=== PATIENT | female | born 1955 | race Caucasian/White ===

== ENCOUNTER 2020-03-14 04:17 | Inpatient (IN) | payer OTHER, SELFPAY ==
[2020-03-14] VITALS (15 sets, daily range): BP systolic 122–148; BP diastolic 72–92; PULSE 83–105; RESP 14–27; TEMP 36.4–38.3; O2SAT 88–97; BMI 36.6; BMI 35.5
--- NOTE | 2020-03-14 04:28 | RAD_ITS ---
STUDY: X-RAY CHEST REASON FOR EXAM: Female, 64 years old. +COVID, cough, shortness breath, weakness. TECHNIQUE: AP portable chest. COMPARISON: None. FINDINGS: Diffuse bilateral patchy airspace opacities most confluent in the lower lung right greater than left. No effusions. No pneumothorax. Normal size heart. Normal mediastinum and vasile. Normal visualized pulmonary arteries. Normal visualized aortic arch and descending thoracic aorta. Normal visualized thoracic spine. Normal visualized ribs, clavicles, and shoulders. There is no demonstrated abnormality of the visualized soft tissue structures of the upper abdomen. RAD/Chest 1 View (Portable) IMPRESSION: Multifocal bilateral pneumonia to include viral pneumonia. Electronically Signed: Main Page MD at 5:17 EST , Service support ,
[2020-03-14] MEDS: 0.9% Normal Saline 1,000 ML 125 ML IV ×3 (04:52→17:01)
[2020-03-14 04:56] LABS: Absolute Lymphocyte Count 1.06 X10^3/uL (0.83-4.51); Absolute Neutrophil Count 9.7 X10^3/uL (2.0-7.7); Basophil# 0.03 X10^3/uL; Basophil% 0.3 % (0-1); Hematocrit 40.5 % (37-47); Hemoglobin 13.2 g/dL (12.0-15.0); Lymphocyte # 1.06 X10^3/ul (4.0); Lymphocyte % 9.4 % (19-41); Mean Corp Hgb Conc 32.6 g/dL (32-36); Mean Corpuscular Hgb 28.3 pg (27.0-32.0); Mean Corpuscular Volume 86.7 fL (81-99); Mean Platelet Vol. 10.8 fl (6.2-12.0); Monocyte# 0.34 X10^3/uL; NRBC Flagged by Analyzer 0 % (0-5); Neutrophil % 86.5 % (47-70); Platelet Count 219 K/mm3 (150-450); RBC Distribution Width CV 14.8 % (11.6-14.6); Red Blood Count 4.67 M/mm3 (4.2-5.4); White Blood Count 11.2 K/mm3 (4.4-11.0)
[2020-03-14 05:08] LABS: D-Dimer Quantitative (DVT/PE) 2.56 FEU/ug/m (0.27-0.49)
[2020-03-14 05:13] LABS: ALB/GLOB Ratio 0.6 RATIO (0.9-2.4); AST(SGOT) 64 U/L (15-37); Alanine Aminotransfer ALT/SGPT 62 U/L (13-56); Albumin, Serum 2.7 g/dL (3.2-5.0); Alkaline Phosphatase 113 U/L (45-117); Anion Gap 7 (5-15); BUN 32 mg/dL (7-18); BUN/Creat Ratio 13.2 RATIO (10-20); Calcium,Total 8.5 mg/dL (8.5-10.1); Chloride 102 mmol/L (98-107); Creatinine, Serum 2.43 mg/dL (0.55-1.02); EST Glomerular Filtration Rate 21 mL/min (>60); Est Glom Filt Rate - Afr Amer 26 mL/min (>60); Estimated Creatinine Clearance 22.47 ml/min; Globulin 4.6 g/dL (2.2-4.2); Glucose 96 mg/dL (74-106); Potassium 3.6 mmol/L (3.5-5.1); Protein, Total 7.3 g/dL (6.4-8.2); Sodium Level 135 mmol/L (136-145)
--- NOTE | 2020-03-14 05:28 | ED.DCSUM_ITS ---
- ER Visit Summary Date of Service: 03/14/20 Chief Complaint: [Shortness of breath and generalized weakness] History of Present Illness: The patient is a 64 F [presents to the emergency department with 8-day history of symptoms. Patient with cough as well as body aches and headache. Patient was tested for COVID-19 1 week ago and got her results yesterday that were positive. Patient complains of exertional dyspnea and having no energy. Cough mostly dry but at times productive of some yellow sputum. Patient has had some chills and sweats. Patient otherwise has no medical history. Patient's also ill with similar symptoms.] Physical Examination: [HEENT-PERRLA, EOMI. Cranial nerves II through XII grossly intact. TMs clear. Mucous membranes moist. No adenopathy. Cardiovascular-regular rate and rhythm without murmur or ectopy Lungs-few rhonchi and rales bilaterally. No accessory muscle use or retractions. She has some mild tachypnea. Abdomen-normoactive bowel sounds, soft, nontender, no rebound or rigidity, no peritoneal signs. Extremities-intact ?4, normal range of motion, normal pulses, atraumatic] Test Results: [CBC with differential obtained showed a white count of 11.2, hemoglobin 13, hematocrit 40, platelets 219. Chemistries showed a sodium 135, potassium 3.6, chloride 102, CO2 26, BUN 32 and creatinine 2.43. Glucose was 146. D-dimer was elevated 2.56. Chest x-ray obtained showed bilateral infiltrates. Lactate pending.] Emergency Department Course and Treatment: [IV line established. Patient was ordered a normal saline. Patient was started on Levaquin 750 mg IV.] Treatment Plan: [I will discuss with hospitalist empirically treating patient with Lovenox given her elevated D-dimer and increased risk for hypercoagulable state related to COVID-19 given that we are unable to perform CTA of the patient's chest due to her acute kidney injury.] Disposition: [Admit] Impression: [Bilateral pneumonia COVID-19 infection Hypoxemia Sepsis] This note was generated with Vinja dictation software. It may contain incorrect words, spelling, and punctuation that were not noted in review of the chart p rior to signing ED Disposition - Plan for ED Patient: Referrals: Adolph Ross DO [Primary Care Provider] -
--- NOTE | 2020-03-14 05:31 | PCM.HP.STD ---
Problem List (1) Sepsis Status: Acute Qualifiers: Sepsis type: sepsis due to unspecified organism Sepsis acute organ dysfunction status: unspecified Qualified Code(s): A41.9 - Sepsis, unspecified organism (2) Hypoxia Status: Acute (3) Pneumonia due to COVID-19 virus Status: Acute (4) Elevated LFTs Status: Acute (5) Obesity (BMI 30-39.9) Status: Chronic (6) Former tobacco use Status: Chronic (7) Alcohol abuse Status: Chronic History of Present Illness Date of Admission: 03/14/20 Chief Complaint: Debility, weakness, dyspnea, cough, COVID positive The patient is a 64 y/o F w/ PMHx: Obesity, Former Tobacco use who presents to the [facility] ED on 03/14/20 with history of onset of COVID type symptoms including fever, headache, body aches, cough, dyspnea the prior Saturday with outpatient testing noted to be positive progressively worsening with increased fatigue, weakness, cough, dyspnea, worse with exertion with pleuritic generalized chest discomfort, worse with inspiratory increased effort, noted to be more severe over the last 48 hours prompting eventual ED presentation for evaluation. She does note that her spouse has been ill for the last 3 days with fevers but otherwise symptoms have been less severe. Work-up in the ED included T1 100, heart rate 101, BP 144/79, respiratory rate 24, 88% on room air at rest, CBC with WC 11.2, hemoglobin 13.2, platelet 219 with left shift, D-dimer 2.56, CMP with sodium 135, BUN/creatinine 32/2.43, lactic acid pending, AST/ALT 64/62, alk phos 113, culture x2 pending per ED, chest x-ray with multifocal bilateral pneumonia consistent with Covid pneumonia. In the ED patient ministered normal saline and Levaquin. Discussed case with ED physician and requested to be administered Decadron. Past Medical History Past Medical History (Chronic Problems): Chronic Problems Obesity (BMI 30-39.9) (Chronic) Former tobacco use (Chronic) Alcohol abuse (Chronic) Allergies No Known Allergies Allergy (Verified 03/14/20 04:18) Home Medications: Ambulatory Orders Medication Instructions Recorded Multivitamin [Multivitamins] 1 ea PO DAILY 03/14/20 Surgical History: - - Hysterectomy and intervention for ectopic . Psychiatric History: No pertinent psych hx [employer] History: ectopic Lives: Spouse/ Significant Other Smoking Status: Former smoker - Patient notes approximate 1 pack/day cigarette tobacco usage from when she was a teenager to age 27 following which she quit. Tobacco Use: Non-smoker Alcohol: Heavy - Patient normally drinks approximately 4 beers daily but since she has had onset of Covid type symptoms she has not been drinking. Drugs: None - *Family History Maternal History Items: Diabetes Paternal History Items: Hypertension Review of Systems Constitutional: Reports: Anorexia, Fever, Malaise, Weakness, Fatigue. Denies: Chills, Weight Change HEENT: Reports: Head Aches, Nasal Congestion. Denies: Sinus Congestion, Sinus Drainage Cardiovascular: Reports: Chest Pain. Denies: Chest Pressure, Chest Tightness, Light Headedness, Orthopnea, Palpitations, Syncope Respiratory: Reports: Cough, Pleuritic Pain, Shortness of Breath, Shortness of breath at rest, Shortness of breath upon exertion. Denies: Sputum production, Wheezing Gastrointestinal: Denies: Abdominal Pain, Nausea, Vomiting Genitourinary: Denies: Dysuria Musculoskeletal: Reports: Back Pain, Joint Pain, Muscle pain. Denies: Joint Tenderness Skin: Denies: Rash, Wounds Neurological: Denies: Numbness, Tingling, Focal weakness Psychiatric: Denies: Anxiety, Depression, Homicidal Ideations, Suicidal Ideations Hematologic/ Lymphatic: Denies: Easy Bruising, Easy Bleeding VTE Information - Inpt Only VTE Present on Admission: No VTE Mechan Device Prophylaxis: SCD's VTE Pharm Prophylaxis ordered?: Yes Subjective: Patient seated upright in the ED, fatigued and ill-appearing. Objective: Physical Examination: General: awake, alert, oriented x 3 and cooperative, seated upright in the ED bed, fatigued and ill-appearing. Skin: Flushed color, normal turgor, no icterus, no cyanosis. HEENT: AT/NC, EOMI, PERRLA, dry MM, no carotid bruits or JVD noted. Lungs: Diminished breath sounds bilaterally, greater bases, mild increased respiratory rate, no obvious accessory muscle usage currently, no rales, ronchi or wheezing. Heart: Tachycardic with regular rhythm; no gallop, rub audible. Abdomen: soft, obese, NTTP, ND, mildly hyperactive BS, no HSM. Extremities: no cyanosis, clubbing, or edema. Neurological: patient awake, alert, oriented as noted; cognitive function near baseline intact; pupils equally reactive to light and accomodation; cranial nerves II-XII grossly normal, moving all 4 extremities, no focal deficits, strength severely globally decreased secondary to acute presentation. Psychiatric: affect appears flat, fatigued, ill-appearing, no acute evidence of depressive or anxiety feelings. - Physical Exam Vitals/I&O's: Vital Signs Temp Pulse Resp BP Pulse Ox 100.0 F H 101 H 19 H 148/78 H 88 03/14/20 04:21 03/14/20 04:21 03/14/20 04:21 03/14/20 04:21 03/14/20 04:21 Oxygen Delivery Method Room Air Weight: 227 lb 1.218 oz Body Mass Index (BMI) 36.6 Laboratory Results 03/14/20 04:40: WBC 11.2 H, RBC 4.67, Hgb 13.2, Hct 40.5, MCV 86.7, MCH 28.3, MCHC 32.6, RDW Std Deviation 47.0 H, RDW Coeff of Ej 14.8 H, Plt Count 219, MPV 10.8, Immature Gran % (Auto) 0.800, Neut % (Auto) 86.5 H, Lymph % (Auto) 9.4 L, Saunders % (Auto) 3.0, Eos % (Auto) 0.0, Baso % (Auto) 0.3, Absolute Neuts (auto) 9.7 H, Absolute Lymphs (auto) 1.06, Nucleated RBC % 0 03/14/20 04:40: D-Dimer Quant (PE/DVT) 2.56 H* 03/14/20 04:40: Sodium 135 L, Potassium 3.6, Chloride 102, Carbon Dioxide 26.0, Anion Gap 7, BUN 32 H, Creatinine 2.43 H, Estim Creat Clear Calc 22.47, Est GFR (MDRD) Af Amer 26 L, Est GFR (MDRD) Non-Af 21 L, BUN/Creatinine Ratio 13.2, Glucose 96, Calcium 8.5, Total Bilirubin 0.40, AST 64 H, ALT 62 H, Alkaline Phosphatase 113, Total Protein 7.3, Albumin 2.7 L, Globulin 4.6 H, Albumin/Globulin Ratio 0.6 L 03/14/20 04:40: Lactic Acid Pending Current Medications Sodium Chloride () 1,000 mls @ 125 mls/hr IV .Q8H CARI Last Admin: 03/14/20 04:52 Dose: 125 mls/hr Documented by: Levofloxacin (Levaquin Iv) 750 mg in 150 mls @ 100 mls/hr IV X1 ONE Stop: 03/14/20 06:46 Assessment/Plan All Active Problems Sepsis (Acute) Hypoxia (Acute) Pneumonia due to COVID-19 virus (Acute) Elevated LFTs (Acute) The patient is a 64 y/o F w/ PMHx: Obesity, Former Tobacco use who presents to the [facility] ED on 03/14/20 with history of onset of COVID type symptoms including fever, headache, body aches, cough, dyspnea the prior Saturday with outpatient testing noted to be positive progressively worsening with increased fatigue, weakness, cough, dyspnea, worse with exertion with pleuritic generalized chest discomfort, worse with inspiratory increased effort. 1. Acute Sepsis secondary to Acute Hypoxia secondary to Bilateral Pneumonia secondary to Suspected Acute Viral Syndrome, COVID-19: Will admit to the COVID unit, will maintain on oxygen with wean as tolerated to room air, HOB, IS parameters w/ pending sputum cultures, respiratory viral panel and urine antigens, will obtain procalcitonin, CRP, CPK, Ferritin, LDH, noted elevated D-dimer with ROS will obtain BL LE duplex US, trend D-dimer, in interim place on renally dosed eliquis, continue supportive care including q 2 hour turning including prone given no prone bed availability and judicious hydration, closely monitor for worsening status for ARDS and multiorgan failure, will continue decadron, request ID consultation, PT/OT/CM consultations. 2. Acute kidney injury: Secondary to acute presentation #1. Admission BUN/Cr 32/2.43, prior baseline creatinine noted to be normal per her report. Will hydrate, hold nephrotoxic medications and repeat chemistry in AM. If no improvement would plan FeNa and renal US assessment. 3. Elevated LFTs: Likely secondary to #1 and #2, however given alcohol abuse may be also related to this, judiciously hydrating given #1, repeat CMP in a.m. 4. Obesity: Weight loss and lifestyle changes encouraged. 5. Former tobacco use: Encourage continued tobacco cessation. 6. EtOH Abuse: Patient notes routine consumption of 4 beers per day, encourage decreasing this amount versus sobriety. Will maintain on CIWA protocol, MVI, thiamine and folic acid. Magnesium and phosphorus levels requested, repletion if appropriate. Case management consulted for substance abuse education. 7. DVT prophylaxis: SCDs, therapeutic Lovenox per Covid order set pending duplex ultrasound given renal function. 8. CODE status: Patient SAVANNA is her and living will is currently in place. Discussed CODE status at length including difference between FULL code, DNR-CCA and DNR-CC status. Following discussions about the differences in these status, requested Full Code status. Advanced Care Planning Face to Face Time: 16 minutes. Inpatient E&M: 02334 Init Hosp L3 Procedures: 33445 Advncd Care Plan 30 Min
[2020-03-14 05:33] LABS: Lactic Acid 1.2 mmol/L (0.4-1.9)
--- NOTE | 2020-03-14 05:45 | ED.RN ---
CALLED AND UPDATED ON ADMISSION AT THIS TIME
[2020-03-14] MEDS: levoFLOXacin IV 750 MG/150 ML BAG 100 MG IV (05:48)
[2020-03-14] MEDS: dexAMETHasone 10 MG/ML Vial IV (05:55)
[2020-03-14] MEDS: Morphine 4 MG/ML Syringe IV (05:56)
--- NOTE | 2020-03-14 07:49 | VDLE_ITS ---
RIGHT LEFT GSV is normal. GSV is normal. Right CFV, SFJ, FV and PopV are compressible. Left CFV, SFJ, FV and PopV are compressible. T/P Trunk is compressible. T/P Trunk is compressible. PTV is compressible. PTV is compressible. RT PerV is compressible. LT PerV is compressible. Procedure This is a venous duplex using B-mode, color flow and spectral Doppler. Exam performed in department. The exam was abbreviated due to the COVID 19 protocol. A preliminary report was called and/or faxed to [facility]. Interpretation Summary No evidence for acute deep venous thrombosis bilateral lower extremities with patent and compressible bilateral great saphenous veins. Abbreviated COVID-19 protocol Ordering Physician: Katie Murray Referring Physician: Mamadou Ramires Chi Performed By: Shae Welch RVT
[2020-03-14 08:32] LABS: Ferritin 1840 ng/mL (8-252); LDH 362 U/L (84-246); Magnesium 2.4 mg/dL (1.6-2.6); Phosphorus 2.9 mg/dL (2.5-4.9)
[2020-03-14 08:35] LABS: Procalcitonin 0.24 ng/mL (0.00-0.09)
[2020-03-14] MEDS: 0.9% Normal Saline 1,000 ML 999 ML IV (09:04)
[2020-03-14] MEDS: 0.9% Saline Lock 10 ML Syringe IV (09:08)
[2020-03-14] MEDS: Famotidine 20 MG Tablet PO ×2 (10:13→20:06)
[2020-03-14] MEDS: Thiamine Hydrochloride 100 MG Tablet PO ×2 (10:13→17:00)
[2020-03-14] MEDS: Multivitamins,Ther W-Minerals Tablet 1 TABLET PO (10:13)
[2020-03-14] MEDS: Enoxaparin 100 MG/ML Syringe SC (10:13)
[2020-03-14] MEDS: Folic Acid 1 MG Tablet PO (10:13)
--- NOTE | 2020-03-14 10:23 | CASEMGMT ---
SW called patient in her room as she is COVID positive. SW asked her if physician spoke with her about cutting back on her alcohol consumption. She said she did talk with her. USMAN asked if she would like any resources to help her with this and she declined. Elizabeth MILAN MSW
--- NOTE | 2020-03-14 10:59 | CASEMGMT ---
PETE LONDON assessment: Phone interview with patient for initial transition planning/care coordination assessment as pt is COVID positive at this time. PETE LONDON introduced self and role at [facility], pt voices understanding and consents to assessment at this time. Pt is A/Ox4 at this time and answers all questions appropriately at this time. Pt is currently on 4L nc at this time. Pt speaks in full sentences at this time but sounds tired/weak at this time. Pt states is sick and quarantining at home. Pt states no concerns getting supplies that they need. Care providers, pharmacy, and demographics verified at this time. Presentation: COVID + since last saturday. 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 Insurance: [employer] Prescription Benefit: Aetna Living Will/HPOA: Pt states has LW/HPOA and is aware that they are not on file at [facility] at this time. Pt states , Kamron Nixon, is HPOA. LNOK: Kamron Nixon, Living Arrangements: Pt states lives with in 2 story home and states no concerns at home at this time. Pt states is independent with ADL's. Transportation: Pt states drives self and states no transportation concerns at this time. DME/HHC: Pt states no current DME or need for any further DME at this time. Pt states no preference for DME company, if qualifies for home oxygen at discharge. Pt states no hx of HHC or SNF in the past. Pt states no concerns with going home at time of discharge. Pt works produce department manager. Pt states does not smoke cigarettes but does drink ETOH. Pt states no further concerns/needs at this time. CM to follow for home oxygen need and any further discharge planning/needs. Advised pt to ask for CM if any further questions/concerns/needs arise, voices understanding. Pt Goal: Home Plan: [place]E [place]
--- NOTE | 2020-03-14 11:22 | PCM.PN.BLA ---
Progress Note Patient was seen and examined. She complains of feeling tired. On 2 L of oxygen. Running low-grade fever Appears comfortable No wheezes on exam Labs reviewed Continue on dexamethasone and remdesivir Follow-up in a.m. STROKE Vital Signs/Narrative: Vital Signs Temp Pulse Resp BP Pulse Ox 03/14/20 08:33 105 H 03/14/20 08:28 95 03/14/20 08:10 99.9 F H 88 14 122/72 H 95
[2020-03-14] MEDS: Acetaminophen 325 MG Tablet 650 MG PO (14:57)
--- NOTE | 2020-03-14 21:35 | PCM.HP.ID ---
Problem List (1) Pneumonia due to COVID-19 virus Status: Acute Reason for Consult: covid Consulted by: Dr. Reyna History of Present Illness: The patient is a 64 year old F, presented 03/14 with sx starting 03/06 with fever, chills, altered taste (salty), aches, fatigue, cough. feels fine and is in quarantine. She thinks she got it from someone who was sick at a meeting. Came to ED, hypoxic, ddimer high. Still not feeling well. Full ROS performed and neg except as noted above. - Medical History Past Medical History (Chronic Problems): Chronic Problems Obesity (BMI 30-39.9) (Chronic) Former tobacco use (Chronic) Alcohol abuse (Chronic) Allergies/Adverse Reactions: Allergies No Known Allergies Allergy (Verified 03/14/20 04:18) Home Medications: Ambulatory Orders Medication Instructions Recorded Multivitamin [Multivitamins] 1 ea PO DAILY 03/14/20 - Social History SMOKING STATUS:: Former smoker Vital Signs Temp Pulse Resp BP Pulse Ox 97.5 F L 83 18 142/83 H 95 03/14/20 20:03 03/14/20 20:03 03/14/20 20:03 03/14/20 20:03 03/14/20 20:03 Oxygen Flow Rate (L/min) 3 Oxygen Delivery Method Nasal Cannula Weight: 99.79 kg Body Mass Index (BMI) 35.5 Microbiology Past 72 Hours 03/14/20 17:00 Legionella Antigen - Final Urine, Clean Catch Streptococcus pneumoniae Antigen (M - Final Laboratory Tests Past 24 Hrs 03/14/20 03/14/20 03/14/20 04:40 04:40 04:40 WBC 11.2 H RBC 4.67 Hgb 13.2 Hct 40.5 MCV 86.7 MCH 28.3 MCHC 32.6 RDW Std Deviation 47.0 H RDW Coeff of Ej 14.8 H Plt Count 219 MPV 10.8 Immature Gran % (Auto) 0.800 Neut % (Auto) 86.5 H Lymph % (Auto) 9.4 L [place] % (Auto) 3.0 Eos % (Auto) 0.0 Baso % (Auto) 0.3 Absolute Neuts (auto) 9.7 H Absolute Lymphs (auto) 1.06 Nucleated RBC % 0 D-Dimer Quant (PE/DVT) 2.56 H* Sodium 135 L Potassium 3.6 Chloride 102 Carbon Dioxide 26.0 Anion Gap 7 BUN 32 H Creatinine 2.43 H Estim Creat Clear Calc 22.47 Est GFR (MDRD) Af Amer 26 L Est GFR (MDRD) Non-Af 21 L BUN/Creatinine Ratio 13.2 Glucose 96 Lactic Acid Calcium 8.5 Phosphorus Magnesium Ferritin Total Bilirubin 0.40 AST 64 H ALT 62 H Alkaline Phosphatase 113 Lactate Dehydrogenase C-React Prot Ext Range Total Protein 7.3 Albumin 2.7 L Globulin 4.6 H Albumin/Globulin Ratio 0.6 L Procalcitonin 03/14/20 03/14/20 03/14/20 04:40 04:40 04:40 WBC RBC Hgb Hct MCV MCH MCHC RDW Std Deviation RDW Coeff of Ej Plt Count MPV Immature Gran % (Auto) Neut % (Auto) Lymph % (Auto) [place] % (Auto) Eos % (Auto) Baso % (Auto) Absolute Neuts (auto) Absolute Lymphs (auto) Nucleated RBC % D-Dimer Quant (PE/DVT) Sodium Potassium Chloride Carbon Dioxide Anion Gap BUN Creatinine Estim Creat Clear Calc Est GFR (MDRD) Af Amer Est GFR (MDRD) Non-Af BUN/Creatinine Ratio Glucose Lactic Acid 1.2 Calcium Phosphorus 2.9 Magnesium 2.4 Ferritin 1840 H Total Bilirubin AST ALT Alkaline Phosphatase Lactate Dehydrogenase 362 H C-React Prot Ext Range 291.00 H Total Protein Albumin Globulin Albumin/Globulin Ratio Procalcitonin 0.24 H - Other Studies Radiology: [] reviewed Other Studies: [] Route of nutrition/ use of supplements: [] Nutritional Intake: [] IV Site: [] Maynard Catheter: [] - Physical Exam General: Alert, Oriented x3, Cooperative HEENT: Atraumatic, PERRLA, EOMI Neck: Supple, No Nodes Lungs: Diminished Cardiovascular: Regular rate, Regular Rhythm Abdomen: Soft, Non Tender, Non-Distended Extremities: No edema Skin: No rashes IV Site: Peripheral, without redness Musculoskeletal: No Tenderness to Palpation of Joints or Extremities Neurological: Cranial nerves II-XII grossly intact - Assessment/Plan Antibiotics: [] Assessment/Plan: [] Active and Suspected Problems Sepsis (Acute) Hypoxia (Acute) Pneumonia due to COVID-19 virus (Acute) Elevated LFTs (Acute) Covid with hypoxia, d-dimer 2.56, on therapeutic lovenox, po dex. GFR less than 30, but will give remdesivir given risks outweighed by benefits. Will monitor daily labs. Reviewed EUA and risk/benefit of plasma, and she wishes to think about it. Will follow, thank you.
[2020-03-15] VITALS (7 sets, daily range): BP systolic 136–148; BP diastolic 80–90; PULSE 76–85; RESP 18; TEMP 36.3–36.7; O2SAT 84–95
[2020-03-15] MEDS: 0.9% Normal Saline 1,000 ML 125 ML IV ×2 (02:47→08:54)
[2020-03-15] MEDS: Acetaminophen 325 MG Tablet 650 MG PO (02:48)
[2020-03-15 08:01] LABS: Hematocrit 39.8 % (37-47); Hemoglobin 12.1 g/dL (12.0-15.0); Mean Corp Hgb Conc 30.4 g/dL (32-36); Mean Corpuscular Hgb 27.4 pg (27.0-32.0); Mean Corpuscular Volume 90.2 fL (81-99); Mean Platelet Vol. 10.4 fl (6.2-12.0); Platelet Count 291 K/mm3 (150-450); RBC Distribution Width CV 15.1 % (11.6-14.6); RBC Distribution Width SD 50.1 fl (35.1-43.9); Red Blood Count 4.41 M/mm3 (4.2-5.4); White Blood Count 14.3 K/mm3 (4.4-11.0)
[2020-03-15 08:28] LABS: ALB/GLOB Ratio 0.6 RATIO (0.9-2.4); AST(SGOT) 54 U/L (15-37); Alanine Aminotransfer ALT/SGPT 53 U/L (13-56); Albumin, Serum 2.3 g/dL (3.2-5.0); Alkaline Phosphatase 102 U/L (45-117); Anion Gap 9 (5-15); BUN 33 mg/dL (7-18); BUN/Creat Ratio 16.7 RATIO (10-20); Calcium,Total 8.2 mg/dL (8.5-10.1); Chloride 114 mmol/L (98-107); Creatinine, Serum 1.98 mg/dL (0.55-1.02); EST Glomerular Filtration Rate 27 mL/min (>60); Est Glom Filt Rate - Afr Amer 33 mL/min (>60); Estimated Creatinine Clearance 27.58 ml/min; Globulin 3.6 g/dL (2.2-4.2); Glucose 104 mg/dL (74-106); Potassium 4.3 mmol/L (3.5-5.1); Protein, Total 5.9 g/dL (6.4-8.2); Sodium Level 143 mmol/L (136-145)
[2020-03-15] MEDS: Thiamine Hydrochloride 100 MG Tablet PO (08:53)
[2020-03-15] MEDS: Famotidine 20 MG Tablet PO (08:54)
[2020-03-15] MEDS: Folic Acid 1 MG Tablet PO (08:54)
[2020-03-15] MEDS: Multivitamins,Ther W-Minerals Tablet 1 TABLET PO (08:54)
[2020-03-15] MEDS: dexAMETHasone 4 MG Tablet 6 MG PO (08:54)
[2020-03-15] MEDS: Enoxaparin 100 MG/ML Syringe SC (10:17)
--- NOTE | 2020-03-15 11:24 | PN.ID_ITS ---
Patient Problems: Active and Suspected Problems Sepsis (Acute) Hypoxia (Acute) Pneumonia due to COVID-19 virus (Acute) Elevated LFTs (Acute) Subjective: Feeling better today, no fever, less SOB, no n/v/d. - Physical Exam Vitals/I&O's: Vital Signs Temp Pulse Resp BP Pulse Ox 97.4 F L 76 18 148/90 H 92 03/15/20 08:43 03/15/20 08:43 03/15/20 08:43 03/15/20 08:43 03/15/20 08:48 Oxygen Flow Rate (L/min) 2 Oxygen Delivery Method Nasal Cannula Weight: 102 kg Body Mass Index (BMI) 35.5 Intake and Output for Last 24 Hours 03/13/20 03/14/20 03/15/20 23:59 23:59 23:59 Intake Total 3513.33 / 3633.33 1735.00 / 1735.00 Output Total 1250 / 1750 800 / 800 Balance 2263.33 / 1883.33 935.00 / 935.00 General: Alert, Cooperative, No apparent distress Lungs: Clear to auscultation, Diminished Cardiovascular: Regular rate, Regular Rhythm Abdomen: Soft, Non Tender, Non-Distended Skin: No rashes Microbiology Past 72 Hours 03/14/20 17:00 Urine, Clean Catch Legionella Antigen - Final 03/14/20 17:00 Urine, Clean Catch Streptococcus pneumoniae Antigen (M - Final Laboratory Results 03/15/20 06:20: WBC 14.3 H, RBC 4.41, Hgb 12.1, Hct 39.8, MCV 90.2, MCH 27.4, MCHC 30.4 L D, RDW Std Deviation 50.1 H, RDW Coeff of Ej 15.1 H, Plt Count 291, MPV 10.4 03/15/20 06:20: Sodium 143, Potassium 4.3, Chloride 114 H, Carbon Dioxide 20.0 L , Anion Gap 9, BUN 33 H, Creatinine 1.98 H, Estim Creat Clear Calc 27.58, Est GFR (MDRD) Af Amer 33 L, Est GFR (MDRD) Non-Af 27 L, BUN/Creatinine Ratio 16.7, Glucose 104, Calcium 8.2 L, Total Bilirubin 0.30, AST 54 H, ALT 53, Alkaline Phosphatase 102, Total Protein 5.9 L, Albumin 2.3 L, Globulin 3.6, Albumin/Globulin Ratio 0.6 L Current Medications Acetaminophen (Acetaminophen 325 Mg Tablet) 650 mg PO Q4H PRN PRN PRN Reason: Pain Score 1-10/Temp > 100.7 F Last Admin: 03/15/20 02:48 Dose: 650 mg Documented by: Al Hydroxide/Mg Hydroxide (Mag Hydrox/Al Hydrox/Simeth 30 Ml Udc) 30 ml PO Q6H PRN PRN PRN Reason: Gastric Burning Dexamethasone (Dexamethasone 4 Mg Tablet) 6 mg PO DAILY [facility] Stop: 03/23/20 10:01 Last Admin: 03/15/20 08:54 Dose: 6 mg Documented by: Enoxaparin Sodium (Enoxaparin 100 Mg/Ml Syringe) 100 mg 1 mg/kg (100 mg) SC Q24 [facility] Last Admin: 03/15/20 10:17 Dose: 100 mg Documented by: Famotidine (Famotidine 20 Mg Tablet) 20 mg PO BID [facility] Last Admin: 03/15/20 08:54 Dose: 20 mg Documented by: Folic Acid (Folic Acid 1 Mg Tablet) 1 mg PO DAILY@0800 [facility] Stop: 03/16/20 08:01 Last Admin: 03/15/20 08:54 Dose: 1 mg Documented by: Guaifenesin (Guaifenesin 10 Ml Udc (200mg/10ml)) 20 ml PO Q4H PRN PRN PRN Reason: COUGH Hydralazine HCl (Hydralazine 20 Mg/Ml Vial) 10 mg IV Q4H PRN PRN PRN Reason: SBP > 160 Sodium Chloride () 1,000 mls @ 125 mls/hr IV .Q8H [facility] Last Admin: 03/15/20 08:54 Dose: 125 mls/hr Documented by: Sodium Chloride () 250 mls @ 15 mls/hr IV .[id number] PRN PRN Reason: Saline Flush Sodium Chloride () 250 mls @ 15 mls/hr IV .[id number] PRN PRN Reason: Additional IVPB Infusion Remdesivir 100 mg/ Sodium (Chloride) 250 mls @ 125 mls/hr IV DAILY [facility]; Prot ocol Stop: 03/18/20 11:59 Last Admin: 03/15/20 10:26 Dose: 125 mls/hr Documented by: Lorazepam (Lorazepam 1 Mg Tablet) 2 mg PO Q2H PRN PRN; Protocol PRN Reason: CIWA score > 8 but <15 Lorazepam (Lorazepam 1 Mg Tablet) 2 mg PO UD PRN; Protocol PRN Reason: CIWA score >/=15. Lorazepam (Lorazepam 2 Mg/Ml Syringe) 2 mg IV Q2H PRN PRN; Protocol PRN Reason: CIWA score > 8 but <15 Lorazepam (Lorazepam 2 Mg/Ml Syringe) 2 mg IV UD PRN; Protocol PRN Reason: CIWA score >/=15. Magnesium Hydroxide (Magnesium Hydroxide 30 Ml Udc) 30 ml PO DAILY PRN PRN PRN Reason: Constipation Melatonin (Melatonin 3 Mg Tablet) 3 mg PO QHS PRN PRN PRN Reason: INSOMNIA Morphine Sulfate (Morphine 2 Mg/Ml Syringe) 2 mg IV Q3H PRN PRN PRN Reason: Pain Score 6-10 Multivitamins/Minerals (Multivitamins,Ther W-Minerals Tablet) 1 tablet PO DAILYCM [facility] Last Admin: 03/15/20 08:54 Dose: 1 tablet Documented by: Nitroglycerin (Nitroglycerin (Inpatient Use) 0.4 Mg Tab.Subl) 0.4 mg SUBLINGUAL Q5M PRN PRN Reason: CARDIAC/CHEST PAIN Ondansetron HCl (Ondansetron 4 Mg/2 Ml Vial) 4 mg IV Q8H PRN PRN PRN Reason: NAUSEA/VOMITING Oxycodone HCl (Oxycodone 5 Mg Tablet) 5 mg PO Q4H PRN PRN PRN Reason: Pain Score 4-5 Prochlorperazine Edisylate (Prochlorperazine 10 Mg/2 Ml Vial) 5 mg IV Q4H PRN PRN PRN Reason: Breakthrough Nausea/Vomiting Psyllium Hydrophilic Mucilloid (Psyllium 1 Packet) 1 packet PO DAILY PRN PRN PRN Reason: Constipation Senna/Docusate Sodium (Senna/Docusate Sodium 1 Tablet) 2 tablet PO BID PRN PRN PRN Reason: Constipation Sodium Chloride (0.9% Saline Lock 10 Ml Syringe) 10 - 40 ml IV UD PRN PRN Reason: SALINE FLUSH Last Admin: 03/14/20 09:08 Dose: 10 ml Documented by: Thiamine HCl (Thiamine Hydrochloride 100 Mg Tablet) 100 mg PO BIDCM [facility] Stop: 03/16/20 17:01 Last Admin: 03/15/20 08:53 Dose: 100 mg Documented by: Throat Lozenges (Benzocaine/Menthol 1 Lozenge) 1 lozenge MUCOUS MEM Q2H PRN PRN PRN Reason: SORE THROAT Medical Necessity - Tobacco Use Smoking Status: Former smoker Tobacco Use: Non-smoker Route of nutrition/ use of supplements: [] Nutritional Intake: [] IV Site: [] Maynard Catheter: [] - Assessment/Plan Antibiotics: [] Assessment/Plan: [] Active and Suspected Problems Sepsis (Acute) Hypoxia (Acute) Pneumonia due to COVID-19 virus (Acute) Elevated LFTs (Acute) Covid with hypoxia, d-dimer 2.56, on therapeutic lovenox, po dex. On remdesivir, labs doing ok, Cr better. Feeling better. Ok for home with po dex to complete 10 days total, recommend low dose anticoagulation for 2 weeks at discharge. Will follow, d/w Dr. Reyna
--- NOTE | 2020-03-15 12:27 | DCINST_ITS ---
- Discharge Diagnoses Current Active Problems: Current Active and Chronic Problems Sepsis (Acute) Hypoxia (Acute) Pneumonia due to COVID-19 virus (Acute) Elevated LFTs (Acute) Obesity (BMI 30-39.9) (Chronic) Former tobacco use (Chronic) Alcohol abuse (Chronic) Reason(s) for Visit for Discharge Instructions: Acute covid-19 infection/pneumonia You will use the following diet at home:: Regular Your food should be the consistency of: Regular Your liquids should be the consistency of: Regular/Thin Discharge Activity: Return to Normal Activity Additional Instructions: You are being discharged with oxygen. Continue to use your oxygen all the time. Continue to use your incentive spirometer. Continue to remain active and eat healthy. Let your doctor know if you develop fever >101.3F or have progressive worsening shortness of breath. Follow-up with your primary care doctor to have your continued oxygen use reevaluated. Be careful of going near open flames whilst on oxygen. Do not smoke whilst on oxygen. Allergies/Adverse Reactions: Allergies No Known Allergies Allergy (Verified 03/14/20 04:18) Medications to take at Discharge Multivitamin [Multivitamins] 1 ea PO DAILY 03/14/20 Acetaminophen [Tylenol Tablet] 650 mg PO Q4H PRN PRN tab 03/15/20 Apixaban [Eliquis] 5 mg PO BID 14 Days #28 tab.ds.pk 03/15/20 Dexamethasone [Decadron] 6 mg PO DAILY 8 Days #8 tab 03/15/20 Famotidine [Pepcid] 20 mg PO BID 30 Days #30 tab 03/15/20 Folic Acid 1 mg PO DAILY@0800 30 Days #30 tab 03/15/20 Thiamine Hydrochloride [Vitamin B1] 100 mg PO BIDCM 30 Days #60 tab 03/15/20 The following prescriptions were given: Dexamethasone [Decadron] 6 mg PO DAILY 8 Days #8 tab Apixaban [Eliquis] 5 mg PO BID 14 Days #28 tab.ds.pk Transmission Status: Pending to [facility]/pharmacy #[id number] Folic Acid 1 mg PO DAILY@0800 30 Days #30 tab Famotidine [Pepcid] 20 mg PO BID 30 Days #30 tab Thiamine Hydrochloride [Vitamin B1] 100 mg PO BIDCM 30 Days #60 tab Primary Care Physician: Adolph Ross DO [COURTESY STAFF PHYSICIAN] - Please follow up with your Primary Care Physician in: within 1-2 weeks Test Results: Test results from this visit will be discussed in further detail at your follow- up appointment, if applicable. Proposed Discharge Date: 03/15/20
--- NOTE | 2020-03-15 12:33 | DS.PCM_ITS ---
Discharge Date and Diagnosis - Problem List Patient Problems: Active and Suspected Problems Sepsis (Acute) Hypoxia (Acute) Pneumonia due to COVID-19 virus (Acute) Elevated LFTs (Acute) Date of Admission: 03/14/20 Date of Discharge: 03/15/20 - Primary Discharge Diagnosis Acute Problems: Active Problems Acute hypoxic respiratory insufficiency secondary to acute COVID-19 Severe sepsis secondary to acute COVID-19 pneumonia, present on admission Acute kidney injury Elevated LFTs Alcohol use disorder - Secondary Discharge Diagnosis Chronic Problems: Chronic Problems Obesity (BMI 30-39.9) (Chronic) Former tobacco use (Chronic) Alcohol abuse (Chronic) Hospital Course and Treatment Imaging Results: Clinical Impression(s) from Imaging Studies Chest X-Ray 03/14/20 04:28 IMPRESSION: Multifocal bilateral pneumonia to include viral pneumonia. Electronically Signed: Main Page MD at 5:17 EST , Service support , Infectious disease Operations: None Procedures: None Summary of Care Provided: The patient is a 64 year old F with past medical history of alcohol use disorder, obesity who presented with fever, headache, body aches, cough ongoing for about a week for. Patient had tested positive in the outpatient but came to the emergency department when she had progressive shortness of breath ongoing for the past 48 hours. His spouse was also ill with fevers for 3 days prior to subsequently has had less severe symptoms. She had elevated temperature in the ED, she was tachycardic, respiratory rate was 24, she was saturating 88% on room air at rest. Her white cell count was 11.2. Her D-dimer was elevated 2.56. Her creatinine was 2.43. AST ALT and ALP were elevated. Chest x-ray showed multifocal bilateral pneumonia consistent with COVID-19. Patient was admitted to the PCU, managed on IV fluids, started on IV Decadron and remdesivir. ID was consulted. Patient renal function improved 2.43-1.98. Continue to improve and was on 2 to 3 L of oxygen. Discussed with infectious disease who felt patient could be discharged home on Decadron to complete 10-day course and also to be discharged on Eliquis. Patient was evaluated for ambulatory oxygen and qualified. She was on 2 L of oxygen at rest and qualified for 4 L of oxygen on ambulation. She was strongly encouraged to use incentive spirometer. Patient Problems: Active and Suspected Problems Sepsis (Acute) Hypoxia (Acute) Pneumonia due to COVID-19 virus (Acute) Elevated LFTs (Acute) Subjective: On the day of discharge, patient was seen and examined. She complains of feeling tired. She however was eager to be discharged. Denied any fever or chills. - Physical Exam Vitals/I&O's: Vital Signs Temp Pulse Resp BP Pulse Ox 97.4 F L 76 18 148/90 H 92 03/15/20 08:43 03/15/20 08:43 03/15/20 08:43 03/15/20 08:43 03/15/20 08:48 Oxygen Flow Rate (L/min) 2 Oxygen Delivery Method Nasal Cannula Weight: 102 kg Body Mass Index (BMI) 35.5 Intake and Output for Last 24 Hours 03/13/20 03/14/20 03/15/20 23:59 23:59 23:59 Intake Total 3513.33 / 3633.33 1735.00 / 1735.00 Output Total 1250 / 1750 800 / 800 Balance 2263.33 / 1883.33 935.00 / 935.00 General: Alert, Oriented x3, Cooperative, No apparent distress, - HEENT: Atraumatic, PERRLA, EOMI, Normocephalic Oral: Moist Mucosa Neck: Supple Lungs: Diminished Cardiovascular: Regular rate, Regular Rhythm, Normal S1, Normal S2, No murmurs Abdomen: Bowel Sounds Present, Soft, Non Tender, Non-Distended, No Hepato-splenomegaly Extremities: No edema Skin: No rashes Musculoskeletal: No Tenderness to Palpation of Joints or Extremities Lymphatic: No Cervical, Supraclavicular, or Inguinal Adenopathy Neurological: Cranial nerves II-XII grossly intact, Neuro grossly intact Psych/Mental Status: Normal Affect, Appropriate Microbiology Past 72 Hours 03/14/20 17:00 Urine, Clean Catch Legionella Antigen - Final 03/14/20 17:00 Urine, Clean Catch Streptococcus pneumoniae Antigen (M - Final Laboratory Results 03/15/20 06:20: WBC 14.3 H, RBC 4.41, Hgb 12.1, Hct 39.8, MCV 90.2, MCH 27.4, MCHC 30.4 L D, RDW Std Deviation 50.1 H, RDW Coeff of Ej 15.1 H, Plt Count 291, MPV 10.4 03/15/20 06:20: Sodium 143, Potassium 4.3, Chloride 114 H, Carbon Dioxide 20.0 L , Anion Gap 9, BUN 33 H, Creatinine 1.98 H, Estim Creat Clear Calc 27.58, Est GFR (MDRD) Af Amer 33 L, Est GFR (MDRD) Non-Af 27 L, BUN/Creatinine Ratio 16.7, Glucose 104, Calcium 8.2 L, Total Bilirubin 0.30, AST 54 H, ALT 53, Alkaline Phosphatase 102, Total Protein 5.9 L, Albumin 2.3 L, Globulin 3.6, Albumin/Globulin Ratio 0.6 L Current Medications Acetaminophen (Acetaminophen 325 Mg Tablet) 650 mg PO Q4H PRN PRN PRN Reason: Pain Score 1-10/Temp > 100.7 F Last Admin: 03/15/20 02:48 Dose: 650 mg Documented by: Al Hydroxide/Mg Hydroxide (Mag Hydrox/Al Hydrox/Simeth 30 Ml Udc) 30 ml PO Q6H PRN PRN PRN Reason: Gastric Burning Dexamethasone (Dexamethasone 4 Mg Tablet) 6 mg PO DAILY [facility] Stop: 03/23/20 10:01 Last Admin: 03/15/20 08:54 Dose: 6 mg Documented by: Enoxaparin Sodium (Enoxaparin 100 Mg/Ml Syringe) 100 mg 1 mg/kg (100 mg) SC Q24 [facility] Last Admin: 03/15/20 10:17 Dose: 100 mg Documented by: Famotidine (Famotidine 20 Mg Tablet) 20 mg PO BID [facility] Last Admin: 03/15/20 08:54 Dose: 20 mg Documented by: Folic Acid (Folic Acid 1 Mg Tablet) 1 mg PO DAILY@0800 [facility] Stop: 03/16/20 08:01 Last Admin: 03/15/20 08:54 Dose: 1 mg Documented by: Guaifenesin (Guaifenesin 10 Ml Udc (200mg/10ml)) 20 ml PO Q4H PRN PRN PRN Reason: COUGH Hydralazine HCl (Hydralazine 20 Mg/Ml Vial) 10 mg IV Q4H PRN PRN PRN Reason: SBP > 160 Sodium Chloride () 1,000 mls @ 125 mls/hr IV .Q8H [facility] Last Admin: 03/15/20 08:54 Dose: 125 mls/hr Documented by: Sodium Chloride () 250 mls @ 15 mls/hr IV .[id number] PRN PRN Reason: Saline Flush Sodium Chloride () 250 mls @ 15 mls/hr IV .[id number] PRN PRN Reason: Additional IVPB Infusion Remdesivir 100 mg/ Sodium (Chloride) 250 mls @ 125 mls/hr IV DAILY [facility]; Protocol Stop: 03/18/20 11:59 Last Admin: 03/15/20 10:26 Dose: 125 mls/hr Documented by: Lorazepam (Lorazepam 1 Mg Tablet) 2 mg PO Q2H PRN PRN; Protocol PRN Reason: CIWA score > 8 but <15 Lorazepam (Lorazepam 1 Mg Tablet) 2 mg PO UD PRN; Protocol PRN Reason: CIWA score >/=15. Lorazepam (Lorazepam 2 Mg/Ml Syringe) 2 mg IV Q2H PRN PRN; Protocol PRN Reason: CIWA score > 8 but <15 Lorazepam (Lorazepam 2 Mg/Ml Syringe) 2 mg IV UD PRN; Protocol PRN Reason: CIWA score >/=15. Magnesium Hydroxide (Magnesium Hydroxide 30 Ml Udc) 30 ml PO DAILY PRN PRN PRN Reason: Constipation Melatonin (Melatonin 3 Mg Tablet) 3 mg PO QHS PRN PRN PRN Reason: INSOMNIA Morphine Sulfate (Morphine 2 Mg/Ml Syringe) 2 mg IV Q3H PRN PRN PRN Reason: Pain Score 6-10 Multivitamins/Minerals (Multivitamins,Ther W-Minerals Tablet) [facility] Last Admin: 03/15/20 08:54 Dose: 1 tablet Documented by: Nitroglycerin (Nitroglycerin (Inpatient Use) 0.4 Mg Tab.Subl) 0.4 mg SUBLINGUAL Q5M PRN PRN Reason: CARDIAC/CHEST PAIN Ondansetron HCl (Ondansetron 4 Mg/2 Ml Vial) 4 mg IV Q8H PRN PRN PRN Reason: NAUSEA/VOMITING Oxycodone HCl (Oxycodone 5 Mg Tablet) 5 mg PO Q4H PRN PRN PRN Reason: Pain Score 4-5 Prochlorperazine Edisylate (Prochlorperazine 10 Mg/2 Ml Vial) 5 mg IV Q4H PRN PRN PRN Reason: Breakthrough Nausea/Vomiting Psyllium Hydrophilic Mucilloid (Psyllium 1 Packet) 1 packet PO DAILY PRN PRN PRN Reason: Constipation Senna/Docusate Sodium (Senna/Docusate Sodium 1 Tablet) 2 tablet PO BID PRN PRN PRN Reason: Constipation Sodium Chloride (0.9% Saline Lock 10 Ml Syringe) 10 - 40 ml IV UD PRN PRN Reason: SALINE FLUSH Last Admin: 03/14/20 09:08 Dose: 10 ml Documented by: Thiamine HCl (Thiamine Hydrochloride 100 Mg Tablet) [facility] Stop: 03/16/20 17:01 Last Admin: 03/15/20 08:53 Dose: 100 mg Documented by: Throat Lozenges (Benzocaine/Menthol 1 Lozenge) 1 lozenge MUCOUS MEM Q2H PRN PRN PRN Reason: SORE THROAT Discharge Diet: Low fat/ Low Cholesterol, 2000 mg Sodium Diet Discharge Activity: Return to Normal Activity Home Medications: Medications to take at Discharge Multivitamin [Multivitamins] 1 ea PO DAILY 03/14/20 Acetaminophen [Tylenol Tablet] 650 mg PO Q4H PRN PRN tab 03/15/20 Apixaban [Eliquis] 5 mg PO BID 14 Days #28 tab.ds.pk 03/15/20 Dexamethasone [Decadron] 6 mg PO DAILY 8 Days #8 tab 03/15/20 Famotidine [Pepcid] 20 mg PO BID 30 Days #30 tab 03/15/20 Folic Acid 1 mg PO DAILY@0800 30 Days #30 tab 03/15/20 Thiamine Hydrochloride [Vitamin B1] 100 mg PO BIDCM 30 Days #60 tab 03/15/20 Following Prescriptions Were Given to Patient: Dexamethasone [Decadron] 6 mg PO DAILY 8 Days #8 tab Transmission Status: Received by [facility]pharmacy #[id number] Apixaban [Eliquis] 5 mg PO BID 14 Days #28 tab.ds.pk Transmission Status: Received by [facility] #[id number] Folic Acid 1 mg PO DAILY@0800 30 Days #30 tab Transmission Status: Received by [facility]acy #[id number] Famotidine [Pepcid] 20 mg PO BID 30 Days #30 tab Transmission Status: Received by [facility] #[id number] Thiamine Hydrochloride [Vitamin B1] 100 mg PO BIDCM 30 Days #60 tab Transmission Status: Received by [facility]acy #[id number] Primary Care Physician: Adolph Ross DO [COURTESY STAFF PHYSICIAN] - Please follow up with your Primary Care Physician in: within 1-2 weeks Disposition: Home Minutes spent on discharge:: 40 Patient Condition:: Stable Medical Necessity - Tobacco Use Smoking Status: Former smoker Tobacco Use: Non-smoker Meaningful Use Info Meaningful Use Diagnoses (Choose all that apply): None applicable Inpatient E&M: [id number] [facility]
--- NOTE | 2020-03-15 12:46 | PHA.DC.MR ---
Pharmacy Service has performed discharge medication reconciliation for this patient. Patient is COVID(+). Attempted x3 to telecounsel patient with no success. Only Medrec performed at this time. Home Medications Multivitamin [Multivitamins] 1 ea PO DAILY 03/14/20 Acetaminophen [Tylenol Tablet] 650 mg PO Q4H PRN PRN tab 03/15/20 Apixaban [Eliquis] 5 mg PO BID 14 Days #28 tab.ds.pk 03/15/20 Dexamethasone [Decadron] 6 mg PO DAILY 8 Days #8 tab 03/15/20 Famotidine [Pepcid] 20 mg PO BID 30 Days #30 tab 03/15/20 Folic Acid 1 mg PO DAILY@0800 30 Days #30 tab 03/15/20 Thiamine Hydrochloride [Vitamin B1] 100 mg PO BIDCM 30 Days #60 tab 03/15/20 The patient's discharge medication list was reviewed for discrepancies and discrepancies were resolved.
--- NOTE | 2020-03-15 13:26 | CASEMGMT ---
Addendum entered by Marvin Mondragon 03/15/20 16:43: Discharge summary w/documentation stating need [place] [facility] [place] their request. Original Note: [facility] NOTE: Pt being discharged. Ambulatory pulse ox completed and pt qualifies for O2 @ 4 L/M w/ambulation. Pt confirms she has no preference of DME company. Script for O2 obtained from Dr Reyna and [place] [facility] [place]. Eliquis has been e-scribed to [facility]. [facility]ente check done and cost is $65.13. Pt provided w/Eliquis savings card and instructed on how to activate/apply savings card. She voices understanding. Pt denies having any questions/concerns w/going home @ discharge or with home O2. She denies further needs. Pt made aware to ask for [facility] if she has any issues w/activating the savings card or for any further needs/concerns. Glenna TRIMBLE RN, CM
--- NOTE | 2020-03-16 13:11 | CASEMGMT ---
[facility] COVID Discharge F/U Phone Call Discharge date: 05/15/2019 Call date: 05/16/2019 Call time: [phone] Attempted to reach pt without success at this time, message left for pt to call Flash FREEMAN CM back when able. [place] PETE CM Admission dx: Sepsis, hypoxia, bilat pna, COVID
== END 2020-03-15 15:02 | disposition home or self-care (01) | DRG 871 ==
LOC: ED 05:29 → PCU 05:58
PROVIDERS: Internal Medicine Infectious Disease; Admitting Provider Family Medicine; Emergency Provider Emergency Medicine; PCP Family Medicine Geriatric Medicine; Referring Provider Family Medicine; Visit Provider Internal Medicine
DX: A41.89 Other specified sepsis (principal); U07.1 COVID-19; J12.89 Other viral pneumonia; N17.9 Acute kidney failure, unspecified; R65.20 Severe sepsis without septic shock; R09.02 Hypoxemia; R06.89 Other abnormalities of breathing; F10.10 Alcohol abuse, uncomplicated; Y90.9 Presence of alcohol in blood, level not specified; E66.9 Obesity, unspecified; Z68.36 Body mass index [BMI] 36.0-36.9, adult; Z87.891 Personal history of nicotine dependence
CPT/HCPCS: 36415; 71045; 80053; 82728; 83605; 83615; 83735; 84100; 84145; 85025; 85027; 85379; 86140; 87040; 87449; 93970; 97802; 99251; 99285; J7030; J7050; A4216; G0463

== ENCOUNTER → 2020-03-28 16:10 | Outpatient (CLI) | payer OTHER, SELFPAY ==
[2020-03-14 07:59] VITALS: BMI 35.5
[2020-03-28 18:21] LABS: Absolute Neutrophil Count 7.7 X10^3/uL (2.0-7.7); Basophil# 0.03 X10^3/uL; Basophil% 0.3 % (0-1); Eosinophils% 0.9 % (0-5); Hematocrit 46.8 % (37-47); Hemoglobin 13.9 g/dL (12.0-15.0); Lymphocyte % 17.6 % (19-41); Mean Corp Hgb Conc 29.7 g/dL (32-36); Mean Corpuscular Hgb 27.5 pg (27.0-32.0); Mean Corpuscular Volume 92.7 fL (81-99); Mean Platelet Vol. 11.5 fl (6.2-12.0); Monocyte% 12.3 % (0-10); NRBC Flagged by Analyzer 0 % (0-5); Neutrophil # 7.74 X10^3/uL (2.7-7.7); Neutrophil % 68.2 % (47-70); Platelet Count 260 K/mm3 (150-450); RBC Distribution Width CV 14.8 % (11.6-14.6); RBC Distribution Width SD 50.4 fl (35.1-43.9); Red Blood Count 5.05 M/mm3 (4.2-5.4); White Blood Count 11.4 K/mm3 (4.4-11.0)
[2020-03-28 18:23] LABS: ALB/GLOB Ratio 0.6 RATIO (0.9-2.4); AST(SGOT) 57 U/L (15-37); Alanine Aminotransfer ALT/SGPT 108 U/L (13-56); Alkaline Phosphatase 99 U/L (45-117); Anion Gap 8 (5-15); BUN 29 mg/dL (7-18); BUN/Creat Ratio 17.8 RATIO (10-20); Calcium,Total 9.3 mg/dL (8.5-10.1); Chloride 108 mmol/L (98-107); Creatinine, Serum 1.63 mg/dL (0.55-1.02); EST Glomerular Filtration Rate 34 mL/min (>60); Est Glom Filt Rate - Afr Amer 41 mL/min (>60); Globulin 4.7 g/dL (2.2-4.2); Glucose 93 mg/dL (74-106); Potassium 4.1 mmol/L (3.5-5.1); Protein, Total 7.7 g/dL (6.4-8.2); Sodium Level 142 mmol/L (136-145); Thyroid Stim Hormone (TSH) 3.27 uIU/mL (0.358-3.74)
[2020-03-29 14:15] LABS: Hepatitis C Antibody Non-Reactive (Nonreactive); Vitamin D,25 Hydroxy 20.6 ng/mL
== END ==
PROVIDERS: PCP Family Medicine Geriatric Medicine; Visit Provider Family Medicine Geriatric Medicine
DX: E55.9 Vitamin D deficiency, unspecified (principal); R53.83 Other fatigue; Z13.89 Encounter for screening for other disorder
CPT/HCPCS: 36415; 80053; 82306; 84443; 85025; 86803

== ENCOUNTER 2020-07-01 06:41 | Outpatient (RCR) | payer OTHER, SELFPAY ==
[2020-03-14 07:59] VITALS: BMI 35.5
== END 2020-09-27 23:59 ==
LOC: IMMUN 06:41
PROVIDERS: PCP Family Medicine Geriatric Medicine; Referring Provider Family Medicine; Visit Provider Family Medicine
DX: Z23 Encounter for immunization (principal)
CPT/HCPCS: 91300

== ENCOUNTER → 2020-07-01 10:11 | Outpatient (CLI) | payer OTHER, SELFPAY ==
[2020-03-14 07:59] VITALS: BMI 35.5
[2020-07-01 12:34] LABS: Anion Gap 3 (5-15); BUN 25 mg/dL (7-18); BUN/Creat Ratio 16.4 RATIO (10-20); Calcium,Total 9.5 mg/dL (8.5-10.1); Chloride 107 mmol/L (98-107); Creatinine, Serum 1.52 mg/dL (0.55-1.02); EST Glomerular Filtration Rate 37 mL/min (>60); Est Glom Filt Rate - Afr Amer 44 mL/min (>60); Glucose 99 mg/dL (74-106); Potassium 4.8 mmol/L (3.5-5.1); Sodium Level 139 mmol/L (136-145)
== END ==
PROVIDERS: PCP Family Medicine Geriatric Medicine; Visit Provider Family Medicine Geriatric Medicine
DX: N17.9 Acute kidney failure, unspecified (principal)
CPT/HCPCS: 36415; 80048

== ENCOUNTER → 2020-09-30 09:44 | Outpatient (CLI) | payer OTHER, SELFPAY ==
[2020-03-14 07:59] VITALS: BMI 35.5
[2020-09-30 12:19] LABS: Absolute Lymphocyte Count 3.09 X10^3/uL (0.83-4.51); Absolute Neutrophil Count 5.5 X10^3/uL (2.0-7.7); Basophil# 0.04 X10^3/uL; Basophil% 0.4 % (0-1); Eosinophil# 0.18 X10^3/uL; Eosinophils% 1.9 % (0-5); Hemoglobin 14.3 g/dL (12.0-15.0); Lymphocyte # 3.09 X10^3/ul (0.83-4.51); Lymphocyte % 32.1 % (19-41); Mean Corp Hgb Conc 31.8 g/dL (32-36); Mean Corpuscular Hgb 27.7 pg (27.0-32.0); Mean Corpuscular Volume 87.2 fL (81-99); Mean Platelet Vol. 11.2 fl (6.2-12.0); Monocyte% 8.3 % (0-10); NRBC Flagged by Analyzer 0 % (0-5); Neutrophil # 5.45 X10^3/uL (2.7-7.7); Neutrophil % 56.7 % (47-70); Platelet Count 268 K/mm3 (150-450); RBC Distribution Width CV 14.6 % (11.6-14.6); Red Blood Count 5.16 M/mm3 (4.2-5.4); White Blood Count 9.6 K/mm3 (4.4-11.0)
[2020-09-30 12:31] LABS: ALB/GLOB Ratio 0.8 RATIO (0.9-2.4); AST(SGOT) 21 U/L (15-37); Alanine Aminotransfer ALT/SGPT 33 U/L (13-56); Albumin, Serum 3.6 g/dL (3.2-5.0); Alkaline Phosphatase 98 U/L (45-117); Anion Gap 5 (5-15); BUN 26 mg/dL (7-18); BUN/Creat Ratio 17.2 RATIO (10-20); Calcium,Total 9.8 mg/dL (8.5-10.1); Chloride 108 mmol/L (98-107); Creatinine, Serum 1.51 mg/dL (0.55-1.02); EST Glomerular Filtration Rate 37 mL/min (>60); Est Glom Filt Rate - Afr Amer 45 mL/min (>60); Globulin 4.3 g/dL (2.2-4.2); Glucose 83 mg/dL (74-106); Potassium 4.4 mmol/L (3.5-5.1); Protein, Total 7.9 g/dL (6.4-8.2); Sodium Level 138 mmol/L (136-145); Thyroid Stim Hormone (TSH) 3.74 uIU/mL (0.358-3.74)
== END ==
PROVIDERS: PCP Family Medicine Geriatric Medicine; Visit Provider Family Medicine Geriatric Medicine
DX: R53.83 Other fatigue (principal)
CPT/HCPCS: 36415; 80053; 84443; 85025

== ENCOUNTER → 2021-01-11 10:44 | Outpatient (CLI) | payer OTHER, SELFPAY ==
--- NOTE | 2021-01-11 10:52 | US_ITS ---
STUDY: RENAL ULTRASOUND - COMPLETE REASON FOR EXAM: Female, 65 years old. Acute renal failure. TECHNIQUE: Ultrasound evaluation of the kidneys was performed with real-time and static corbett-scale imaging. COMPARISON: None. FINDINGS: RIGHT KIDNEY: Normal location of the right kidney, which is normal in size. The right kidney measures 9.7 cm x 6.5 cm x 4.9 cm. There is a normal cortex of the right kidney. The renal cortex measures 1.1 cm. There is no right renal mass or cyst. There are no right renal calculi. There is no right hydronephrosis. DISTAL RIGHT URETER: There is non-visualization of the distal right ureter. There is no demonstrated right ureterovesical junction calculus. There is a visualized right ureteral jet. LEFT KIDNEY: with mild renal atrophy. The left kidney measures 8.9 cm x 4.7 cm x 4.4 cm. There is thinning of the renal cortex. The renal cortex measures 0.8 cm. There is no left renal mass or cyst. There are no left renal calculi. There is no left hydronephrosis. DISTAL LEFT URETER: There is non-visualization of the distal left ureter. There is no demonstrated left ureterovesical junction calculus. There is a visualized left ureteral jet. BLADDER: The distended urinary bladder has a volume of 1107 ml. There is a normal wall thickness of the distended urinary bladder. There is no demonstrated mass within the urinary bladder. There are no demonstrated bladder calculi. US/Kidney and Bladder IMPRESSION: Mild atrophy of the left kidney. Electronically Signed: Bin Rodriguez MD at 15:22 EDT , Service support ,
== END ==
PROVIDERS: PCP Family Medicine Geriatric Medicine; Referring Provider Internal Medicine Nephrology; Visit Provider Internal Medicine Nephrology
DX: N17.9 Acute kidney failure, unspecified (principal)
CPT/HCPCS: 76770

== ENCOUNTER → 2021-01-19 08:22 | Outpatient (CLI) | payer OTHER, SELFPAY ==
[2021-01-19 09:41] LABS: 24 Hour Urine Protein 493.5 mg/24HR (<150 MG/24HR); 24HR. UA Prot. Total Volume 3500 mL; Urine Protein (24 Hour) 14.1 mg/dL (<11.9)
[2021-01-19 09:49] LABS: Albumin, Serum 3.5 g/dL (3.2-5.0); BUN 22 mg/dL (7-18); BUN/Creat Ratio 15.3 RATIO (10-20); Calcium,Total 9.3 mg/dL (8.5-10.1); Chloride 107 mmol/L (98-107); Creat.Clear Total Volume 3500 mL; Creatinine Clearance 65 ml/min (100-200); Creatinine Serum Creat 1.4 mg/dL (0.6-1.0); Creatinine Urine 38.4 mg/dL (NO RANGE EST.); Creatinine, Serum 1.44 mg/dL (0.55-1.02); EST Glomerular Filtration Rate 39 mL/min (>60); Est Glom Filt Rate - Afr Amer 47 mL/min (>60); Glucose 103 mg/dL (74-106); Phosphorus 2.3 mg/dL (2.5-4.9); Potassium 4.1 mmol/L (3.5-5.1); Sodium Level 142 mmol/L (136-145)
== END ==
LOC: LABSPEC 08:23 → LAB 08:25
PROVIDERS: PCP Family Medicine Geriatric Medicine; Referring Provider Internal Medicine Nephrology; Visit Provider Internal Medicine Nephrology
DX: N18.32 Chronic kidney disease, stage 3b (principal)
CPT/HCPCS: 36415; 80069; 81050; 82575; 84156

== ENCOUNTER → 2021-04-06 15:06 | Outpatient (CLI) | payer OTHER, SELFPAY ==
[2021-04-06 15:47] LABS: Absolute Lymphocyte Count 2.54 X10^3/uL (0.83-4.51); Absolute Neutrophil Count 7.5 X10^3/uL (2.0-7.7); Basophil# 0.06 X10^3/uL; Basophil% 0.5 % (0-1); Eosinophil# 0.23 X10^3/uL; Eosinophils% 2.1 % (0-5); Hematocrit 43.2 % (37-47); Hemoglobin 13.9 g/dL (12.0-15.0); Lymphocyte # 2.54 X10^3/ul (0.83-4.51); Lymphocyte % 22.8 % (19-41); Mean Corp Hgb Conc 32.2 g/dL (32-36); Mean Corpuscular Hgb 28.4 pg (27.0-32.0); Mean Corpuscular Volume 88.2 fL (81-99); Monocyte# 0.71 X10^3/uL; Monocyte% 6.4 % (0-10); NRBC Flagged by Analyzer 0 % (0-5); Neutrophil # 7.49 X10^3/uL (2.7-7.7); Neutrophil % 67.4 % (47-70); Platelet Count 371 K/mm3 (150-450); RBC Distribution Width CV 14.1 % (11.6-14.6); White Blood Count 11.1 K/mm3 (4.4-11.0)
[2021-04-06 16:25] LABS: ALB/GLOB Ratio 0.8 RATIO (0.9-2.4); AST(SGOT) 19 U/L (15-37); Alanine Aminotransfer ALT/SGPT 39 U/L (13-56); Albumin, Serum 3.5 g/dL (3.2-5.0); Alkaline Phosphatase 92 U/L (45-117); Anion Gap 7 (5-15); BUN 25 mg/dL (7-18); BUN/Creat Ratio 15.5 RATIO (10-20); Chloride 106 mmol/L (98-107); Creatinine, Serum 1.61 mg/dL (0.55-1.02); EST Glomerular Filtration Rate 34 mL/min (>60); Est Glom Filt Rate - Afr Amer 42 mL/min (>60); Globulin 4.4 g/dL (2.2-4.2); Glucose 117 mg/dL (74-106); Potassium 4.3 mmol/L (3.5-5.1); Protein, Total 7.9 g/dL (6.4-8.2); Sodium Level 140 mmol/L (136-145); Thyroid Stim Hormone (TSH) 4.22 uIU/mL (0.358-3.74)
== END ==
PROVIDERS: PCP Family Medicine Geriatric Medicine; Visit Provider Family Medicine Geriatric Medicine
DX: R53.83 Other fatigue (principal)
CPT/HCPCS: 36415; 80053; 84443; 85025

== ENCOUNTER 2021-06-07 12:30 | Outpatient (CLI) | payer OTHER, SELFPAY ==
[2021-06-07 14:52] LABS: Thyroid Stim Hormone (TSH) 2.66 uIU/mL (0.358-3.74)
== END 2021-06-07 23:59 | disposition home or self-care (01) ==
PROVIDERS: PCP Family Medicine Geriatric Medicine; Referring Provider Family Medicine Geriatric Medicine; Visit Provider Family Medicine Geriatric Medicine
DX: E03.9 Hypothyroidism, unspecified (principal)
CPT/HCPCS: 36415; 84443

== ENCOUNTER 2021-08-09 08:08 | Outpatient (CLI) | payer OTHER, SELFPAY ==
[2021-08-09 09:21] LABS: Albumin, Serum 3.6 g/dL (3.2-5.0); BUN 18 mg/dL (7-18); BUN/Creat Ratio 12.4 RATIO (10-20); Calcium,Total 8.9 mg/dL (8.5-10.1); Chloride 108 mmol/L (98-107); Creatinine, Serum 1.45 mg/dL (0.55-1.02); EST Glomerular Filtration Rate 39 mL/min (>60); Est Glom Filt Rate - Afr Amer 47 mL/min (>60); Glucose 113 mg/dL (74-106); Phosphorus 2.5 mg/dL (2.5-4.9); Potassium 4.4 mmol/L (3.5-5.1); Sodium Level 143 mmol/L (136-145)
== END 2021-08-09 23:59 | disposition home or self-care (01) ==
LOC: LAB 08:10
PROVIDERS: PCP Family Medicine Geriatric Medicine; Visit Provider Internal Medicine Nephrology
DX: N18.32 Chronic kidney disease, stage 3b (principal)
CPT/HCPCS: 36415; 80069

== ENCOUNTER → 2021-08-18 | Outpatient (CLI) | payer OTHER, SELFPAY | END | disposition home or self-care (01) | LOC: PSN 12:26 | PROVIDERS: PCP Family Medicine Geriatric Medicine; Referring Provider Family Medicine Geriatric Medicine; Visit Provider Family Medicine Geriatric Medicine | DX: R68.83 Chills (without fever) (principal); Z20.822 Contact with and (suspected) exposure to COVID-19 | CPT/HCPCS: 87635; 87804; 87807; C9803; U0003; U0005 ==

== ENCOUNTER → 2022-04-19 | Outpatient (CLI) | payer OTHER, SELFPAY ==
[2022-04-19 17:04] LABS: Absolute Lymphocyte Count 3.01 X10^3/uL (0.83-4.51); Absolute Neutrophil Count 6.7 X10^3/uL (2.0-7.7); Basophil# 0.05 X10^3/uL; Basophil% 0.5 % (0-1); Eosinophil# 0.24 X10^3/uL; Eosinophils% 2.2 % (0-5); Hematocrit 46.1 % (37-47); Hemoglobin 14.7 g/dL (12.0-15.0); Lymphocyte # 3.01 X10^3/ul (0.83-4.51); Lymphocyte % 27.5 % (19-41); Mean Corp Hgb Conc 31.9 g/dL (32-36); Mean Corpuscular Hgb 28.1 pg (27.0-32.0); Mean Corpuscular Volume 88.1 fL (81-99); Mean Platelet Vol. 11.3 fl (6.2-12.0); Monocyte# 0.78 X10^3/uL; Monocyte% 7.1 % (0-10); NRBC Flagged by Analyzer 0 % (0-5); Neutrophil # 6.73 X10^3/uL (2.7-7.7); Neutrophil % 61.6 % (47-70); Platelet Count 321 K/mm3 (150-450); RBC Distribution Width CV 14.6 % (11.6-14.6); RBC Distribution Width SD 47.4 fl (35.1-43.9); Red Blood Count 5.23 M/mm3 (4.2-5.4); White Blood Count 10.9 K/mm3 (4.4-11.0)
[2022-04-19 17:32] LABS: ALB/GLOB Ratio 0.9 RATIO (0.9-2.4); AST(SGOT) 15 U/L (15-37); Alanine Aminotransfer ALT/SGPT 31 U/L (13-56); Albumin, Serum 3.7 g/dL (3.2-5.0); Alkaline Phosphatase 86 U/L (45-117); Anion Gap 8 (5-15); BUN 27 mg/dL (7-18); BUN/Creat Ratio 15.7 RATIO (10-20); Calcium,Total 9.1 mg/dL (8.5-10.1); Chloride 106 mmol/L (98-107); Creatinine, Serum 1.72 mg/dL (0.55-1.02); EST Glomerular Filtration Rate 32 mL/min (>60); Est Glom Filt Rate - Afr Amer 38 mL/min (>60); Globulin 3.9 g/dL (2.2-4.2); Glucose 126 mg/dL (74-106); Potassium 3.8 mmol/L (3.5-5.1); Protein, Total 7.6 g/dL (6.4-8.2); Sodium Level 139 mmol/L (136-145); Thyroid Stim Hormone (TSH) 4.34 uIU/mL (0.358-3.74)
== END | disposition home or self-care (01) ==
LOC: POLAB3 13:47
PROVIDERS: PCP Family Medicine Geriatric Medicine; Visit Provider Family Medicine Geriatric Medicine
DX: R53.83 Other fatigue (principal)
CPT/HCPCS: 36415; 80053; 84443; 85025

== ENCOUNTER → 2023-04-24 | Outpatient (CLI) | payer OTHER, SELFPAY ==
[2023-04-24 15:18] LABS: Absolute Lymphocyte Count 3.29 X10^3/uL (0.83-4.51); Absolute Neutrophil Count 7.5 X10^3/uL (2.0-7.7); Basophil# 0.06 X10^3/uL; Basophil% 0.5 % (0-1); Eosinophil# 0.16 X10^3/uL; Eosinophils% 1.4 % (0-5); Hemoglobin 14.4 g/dL (12.0-15.0); Lymphocyte # 3.29 X10^3/ul (0.83-4.51); Lymphocyte % 27.8 % (19-41); Mean Corp Hgb Conc 31.3 g/dL (32-36); Mean Corpuscular Hgb 28.1 pg (27.0-32.0); Mean Corpuscular Volume 89.8 fL (81-99); Mean Platelet Vol. 10.7 fl (6.2-12.0); Monocyte# 0.69 X10^3/uL; Monocyte% 5.8 % (0-10); NRBC Flagged by Analyzer 0 % (0-5); Neutrophil # 7.54 X10^3/uL (2.7-7.7); Neutrophil % 63.8 % (47-70); Platelet Count 299 K/mm3 (150-450); RBC Distribution Width CV 14.1 % (11.6-14.6); RBC Distribution Width SD 46.8 fl (35.1-43.9); Red Blood Count 5.12 M/mm3 (4.2-5.4); White Blood Count 11.8 K/mm3 (4.4-11.0)
[2023-04-24 15:24] LABS: Vitamin D,25 Hydroxy 22.9 ng/mL
[2023-04-24 15:30] LABS: ALB/GLOB Ratio 0.9 RATIO (0.9-2.4); AST(SGOT) 16 U/L (15-37); Alanine Aminotransfer ALT/SGPT 31 U/L (13-56); Albumin, Serum 3.7 g/dL (3.2-5.0); Alkaline Phosphatase 92 U/L (45-117); Anion Gap 6 (5-15); BUN 24 mg/dL (7-18); BUN/Creat Ratio 16.1 RATIO (10-20); Calcium,Total 9.9 mg/dL (8.5-10.1); Chloride 106 mmol/L (98-107); Creatinine, Serum 1.49 mg/dL (0.55-1.02); EST Glomerular Filtration Rate 37 mL/min (>60); Est Glom Filt Rate - Afr Amer 45 mL/min (>60); Globulin 4.2 g/dL (2.2-4.2); Glucose 89 mg/dL (74-106); Potassium 4.3 mmol/L (3.5-5.1); Protein, Total 7.9 g/dL (6.4-8.2); Sodium Level 139 mmol/L (136-145); Thyroid Stim Hormone (TSH) 3.77 uIU/mL (0.358-3.74)
== END | disposition home or self-care (01) ==
PROVIDERS: PCP Family Medicine Geriatric Medicine; Visit Provider Family Medicine Geriatric Medicine
DX: E55.9 Vitamin D deficiency, unspecified (principal); R53.83 Other fatigue
CPT/HCPCS: 36415; 80053; 82306; 84443; 85025

== ENCOUNTER → 2023-05-29 | Outpatient (CLI) | payer OTHER, SELFPAY ==
[2022-05-30 16:05] LABS: Albumin, Serum 3.8 g/dL (3.2-5.0); BUN 25 mg/dL (7-18); BUN/Creat Ratio 15.4 RATIO (10-20); Calcium,Total 9.5 mg/dL (8.5-10.1); Chloride 108 mmol/L (98-107); Creatinine, Serum 1.62 mg/dL (0.55-1.02); EST Glomerular Filtration Rate 34 mL/min (>60); Est Glom Filt Rate - Afr Amer 41 mL/min (>60); Glucose 84 mg/dL (74-106); Phosphorus 2.7 mg/dL (2.5-4.9); Potassium 4.1 mmol/L (3.5-5.1); Sodium Level 141 mmol/L (136-145)
[2023-05-29 13:01] LABS: Albumin, Serum 3.7 g/dL (3.2-5.0); BUN 22 mg/dL (7-18); BUN/Creat Ratio 15.3 RATIO (10-20); Calcium,Total 9.6 mg/dL (8.5-10.1); Chloride 110 mmol/L (98-107); Creatinine, Serum 1.44 mg/dL (0.55-1.02); EST Glomerular Filtration Rate 39 mL/min (>60); Est Glom Filt Rate - Afr Amer 47 mL/min (>60); Glucose 93 mg/dL (74-106); Phosphorus 3.1 mg/dL (2.5-4.9); Potassium 4.4 mmol/L (3.5-5.1); Sodium Level 140 mmol/L (136-145)
== END | disposition home or self-care (01) ==
PROVIDERS: PCP Family Medicine Geriatric Medicine; Referring Provider Internal Medicine Nephrology; Visit Provider Internal Medicine Nephrology
DX: N18.32 Chronic kidney disease, stage 3b (principal)
CPT/HCPCS: 36415; 80069

== ENCOUNTER → 2023-11-14 | Outpatient (CLI) | payer OTHER, SELFPAY ==
[2023-11-14 14:27] LABS: Thyroid Stim Hormone (TSH) 2.17 uIU/mL (0.358-3.74)
== END | disposition home or self-care (01) ==
LOC: LAB 13:40
PROVIDERS: PCP Family Medicine Geriatric Medicine; Visit Provider Family Medicine Geriatric Medicine
DX: E03.9 Hypothyroidism, unspecified (principal)
CPT/HCPCS: 36415; 84443

== ENCOUNTER → 2023-12-25 | Outpatient (CLI) | payer OTHER, SELFPAY ==
[2023-12-25 17:39] LABS: Albumin, Serum 3.5 g/dL (3.2-5.0); BUN 22 mg/dL (7-18); BUN/Creat Ratio 13.5 RATIO (10-20); Calcium,Total 9.5 mg/dL (8.5-10.1); Chloride 111 mmol/L (98-107); Creatinine, Serum 1.63 mg/dL (0.55-1.02); EST Glomerular Filtration Rate 34 mL/min (>60); Est Glom Filt Rate - Afr Amer 41 mL/min (>60); Glucose 93 mg/dL (74-106); Phosphorus 2.3 mg/dL (2.5-4.9); Potassium 4.1 mmol/L (3.5-5.1); Sodium Level 142 mmol/L (136-145)
== END | disposition home or self-care (01) ==
LOC: LAB 16:12
PROVIDERS: PCP Family Medicine Geriatric Medicine; Referring Provider Internal Medicine Nephrology; Visit Provider Internal Medicine Nephrology
DX: N18.32 Chronic kidney disease, stage 3b (principal)
CPT/HCPCS: 36415; 80069

== ENCOUNTER → 2024-04-29 | Outpatient (CLI) | payer OTHER, SELFPAY ==
[2024-04-29 14:14] LABS: Absolute Lymphocyte Count 3.13 X10^3/uL (0.83-4.51); Absolute Neutrophil Count 6.7 X10^3/uL (2.0-7.7); Basophil# 0.05 X10^3/uL; Basophil% 0.5 % (0-1); Eosinophil# 0.21 X10^3/uL; Eosinophils% 1.9 % (0-5); Hematocrit 46.6 % (37-47); Hemoglobin 14.9 g/dL (12.0-15.0); Lymphocyte # 3.13 X10^3/ul (0.83-4.51); Lymphocyte % 28.7 % (19-41); Mean Corpuscular Hgb 27.7 pg (27.0-32.0); Mean Corpuscular Volume 86.6 fL (81-99); Mean Platelet Vol. 10.4 fl (6.2-12.0); Monocyte# 0.78 X10^3/uL; Monocyte% 7.2 % (0-10); NRBC Flagged by Analyzer 0 % (0-5); Neutrophil # 6.65 X10^3/uL (2.7-7.7); Neutrophil % 61.1 % (47-70); Platelet Count 285 K/mm3 (150-450); RBC Distribution Width CV 14.7 % (11.6-14.6); RBC Distribution Width SD 46.7 fl (35.1-43.9); Red Blood Count 5.38 M/mm3 (4.2-5.4); White Blood Count 10.9 K/mm3 (4.4-11.0)
[2024-04-29 15:08] LABS: ALB/GLOB Ratio 0.9 RATIO (0.9-2.4); AST(SGOT) 13 U/L (15-37); Alanine Aminotransfer ALT/SGPT 28 U/L (13-56); Albumin, Serum 3.8 g/dL (3.2-5.0); Alkaline Phosphatase 99 U/L (45-117); Anion Gap 5 (5-15); BUN 26 mg/dL (7-18); BUN/Creat Ratio 18.3 RATIO (10-20); Calcium,Total 9.4 mg/dL (8.5-10.1); Chloride 109 mmol/L (98-107); Cholesterol 203 mg/dL (200); Creatinine, Serum 1.42 mg/dL (0.55-1.02); EST Glomerular Filtration Rate 39 mL/min (>60); Est Glom Filt Rate - Afr Amer 48 mL/min (>60); Globulin 4.2 g/dL (2.2-4.2); Glucose 100 mg/dL (74-106); High Density Lipoprotein 70 mg/dL; Potassium 3.9 mmol/L (3.5-5.1); Sodium Level 138 mmol/L (136-145); Triglycerides 151 mg/dL; Very Low Density Lipoprotein 30 mg/dL (5-40); Vitamin D,25 Hydroxy 18.1 ng/mL
== END | disposition home or self-care (01) ==
LOC: LAB 13:41
PROVIDERS: PCP Family Medicine Geriatric Medicine; Referring Provider Family Medicine Geriatric Medicine; Visit Provider Family Medicine Geriatric Medicine
DX: I10 Essential (primary) hypertension (principal); E78.5 Hyperlipidemia, unspecified; E55.9 Vitamin D deficiency, unspecified
CPT/HCPCS: 36415; 80053; 80061; 82306; 84443; 85025

== ENCOUNTER → 2024-11-25 | Outpatient (CLI) | payer MEDICARE, SELFPAY ==
[2024-11-25 14:14] LABS: Albumin, Serum 4.3 g/dL (3.4-4.8); Anion Gap 16 (5-15); BUN 27 mg/dL (4-19); BUN/Creat Ratio 14.6 RATIO (10-20); Calcium,Total 9.7 mg/dL (7.6-11.0); Carbon Dioxide 23.8 mmol/L (21.0-32.0); Chloride 95 mmol/L (98-108); Glucose 133 mg/dL (70-99); Potassium 3.5 mmol/L (3.3-5.1)
== END | disposition home or self-care (01) ==
PROVIDERS: PCP Family Medicine Geriatric Medicine; Referring Provider Internal Medicine Nephrology; Visit Provider Internal Medicine Nephrology
DX: N18.32 Chronic kidney disease, stage 3b (principal)
CPT/HCPCS: 36415; 80069

== ENCOUNTER → 2025-01-07 | Outpatient (CLI) | payer MEDICARE, SELFPAY ==
[2025-01-07 18:06] LABS: Creatinine, Urine (random) 43.00 mg/dL (28.00-217.00); Microalbumin,Random Urine 65.1 mg/L (<20 mg/L)
[2025-01-07 18:20] LABS: AST(SGOT) 21 U/L (<=31); Alanine Aminotransfer ALT/SGPT 22 U/L (<=34); Albumin, Serum 4.4 g/dL (3.4-4.8); Alkaline Phosphatase 83 U/L (35-104); Anion Gap 16 (5-15); BUN 21 mg/dL (4-19); BUN/Creat Ratio 10.8 RATIO (10-20); Calcium,Total 9.9 mg/dL (7.6-11.0); Carbon Dioxide 20.8 mmol/L (21.0-32.0); Chloride 101 mmol/L (98-108); Globulin 3.0 g/dL (2.2-4.2); Glucose 100 mg/dL (70-99); Potassium 4.1 mmol/L (3.3-5.1); Vitamin D,25 Hydroxy 41.7 ng/mL (30-100)
--- OUTSIDE RECORDS SUMMARY | 2025-01-07 18:36 | XMS RPT_ITS | CCD ---
Author Organization [facility] Inform ion [facility] Care Team Providers Care Decorator Consultant Name Role Phone Ike PETIT, Dr. Mamadou Harris Primary Care Provider [phone] Dr. Catrina Mendoza DO Attending Provider [phone] Dr. Catrina Mendoza DO Referring Provider Mamadou Ramires Chi Referring Unavailable Mamadou Ramires Chi Attending Unavailable Mamadou Ramires Chi Primary Care Unavailable Lolita Huffman Referring Unavailable Lolita Huffman Attending Unavailable Lolita Huffman Primary Care Unavailable Catrina Mendoza Attending Unavailable Mamadou Ramires Chi Primary Care Unavailable Catrina Mendoza Referring Unavailable Medications Current Medications Medication Drug Class(es) Dates Sig (Normalized) Sig (Original) acetaminophen 325 mg oral tablet (6 sources) Start: 03-15-2020 Acetaminophen 325 MG tablet Active 650 mg PO EVERY 4 HOURS NEEDED as needed for Pain Score 1-10/Temp > 100.7 F 0 March 15, 2020 1:00am Start: 03-15-2020 take 650 mg by mouth every four hours as needed Acetaminophen Active 650 MG PO EVERY 4 HOURS NEEDED March 15, 2020 12:00am Multivitamin 1 EACH tablet (1 source) Start: 03-14-2020 Multivitamin 1 EACH tablet Active 1 NMA PO DAILY March 14, 2020 1:00am vitamin Multivitamin preparation (5 sources) Start: 03-14-2020 Multivitamin A ctive 1 EACH PO DAILY March 14, 2020 5:18am Start: 03-14-2020 Multivitamin A ctive 1 EACH PO DAILY March 14, 2020 12:00am Completed/Discontinued Medications Medication Drug Class(es) Dates Sig (Normalized) Sig (Original) apixaban 5 mg oral tablet (6 sources) Factor Xa Inhibitor Start: 03-15-2020 End: 03-29-2020 take 1 tablet by mouth twice daily Apixaban 5 MG tablets,dose pack Discontinued 5 mg PO TWICE A DAY 28 14 March 15, 2020 1:00am March 28, 2020 1:00am March 29, 2020 1:02am dexamethasone 4 mg oral tablet (6 sources) Corticosteroid Start: 03-15-2020 End: 03-23-2020 take 6 mg by mouth once daily Dexamethasone 4 MG tablet Discontinued 6 mg PO DAILY 8 March 15, 2020 1:00am March 22, 2020 1:00am March 23, 2020 1:03am Start: 03-15-2020 End: 03-23-2020 take 6 mg by mouth once daily Dexamethasone Discontinu ed 6 MG PO DAILY 8 March 15, 2020 12:00March 23, 2020 12:03am famotidine 20 mg oral tablet (6 sources) Histamine-2 Receptor Antagonist Start: 03-15-2020 End: 04-14-2020 take 1 tablet by mouth twice daily Famotidine 20 MG tablet Discontinued 20 mg PO TWICE A DAY 30 30 March 15, 2020 1:00am April 13, 2020 1:00am April 14, 2020 1:02am folic acid 1 mg oral tablet (6 sources) Start: 03-15-2020 End: 04-14-2020 take 1 tablet by mouth once daily Folic Acid 1 MG tablet Discontinued 1 mg PO DAILY@0800 30 30 March 15, 2020 1:00am April 13, 2020 1:00am April 14, 2020 1:02am thiamine 100 mg oral tablet (6 sources) Start: 03-15-2020 End: 04-14-2020 take 1 tablet by mouth twice daily at mealtime Thiamine Hcl (Vitamin B1) 100 MG tablet Discontinued 100 mg PO TWICE DAILY WITH MEALS 60 30 March 15, 2020 1:00am April 13, 2020 1:00am April 14, 2020 1:02am Problems Problem Classification Problem Date Documented Da te Episodic/Chronic Alcohol-related disorders (6 sources) Alcohol abuse; Translations: [Alcohol abuse, uncomplicated] 03-14-2020 Chronic Chronic kidney disease (1 source) Chronic kidney disease; Translations: [Chronic kidney disease, stage 3b] Onset: 12-01-2024 Essential hypertension (1 source) Essential (primary) hypertension; Translations: [Essential (primary) hypertension] Onset: 05-20-2024 Chronic Other lower respiratory disease (6 sources) Hypoxia; Translations: [Hypoxemia] 03-14-2020 Episodic Other nutritional; endocrine; and metabolic disorders (6 sources) Body mass index 30+ - obesity; Translations: [Obesity, unspecified] 03-14-2020 Chronic Other screening for suspected conditions (not mental disorders or infectious disease) (7 sources) Other specified abnormal findings of blood chemistry; Translations: [Elevated liver function tests] Onset: 01-04-2025 03-14-2020 Episodic Screening and history of mental health and substance abuse codes (6 sources) Ex-tobacco user; Translations: [Personal history of nicotine dependence] 03-14-2020 Episodic Septicemia (except in labor) (6 sources) Sepsis; Translations: [Sepsis, unspecified organism] 03-14-2020 Episodic Viral infection (6 sources) COVID-19; Translations: [Pneumonia due to COVID-19 virus] 03-14-2020 Episodic Results Test Name Value Interpretation Reference Range Facility Anion gap in Serum or Plasma Ordered By: Catrina Mendoza on 11-25-2024 Anion gap [Moles/Vol] 16 mmol/L High 5-15 [facility] BUN/creatinine ratioOrdered By: Catrina Mendoza on 11-25-2024 Urea nitrogen/Creatinine [Mass ratio] 14.6 mg/mg 10-20 [facility] Carbon dioxide, total [Moles /volume] in Central venous bloodOrdered By: Catrina Mendoza on 11-25-2024 CO2 [Moles/Vol] 23.8 mmol/L 21.0-32.0 [facility] Chloride assayOrdered By: Perlita Mendoza on 11-25-2024 Chloride [Moles/Vol] 95 mmol/L Low 98-108 [facility] Glomerular filtration rate ( GFR) estimation/1.73 sq m using serum, plasma, or whole bOrdered By: Catrina Mendoza on 11-25-2024 GFR/1.73 sq M.predicted among non-blacks MDRD (S/P/Bld) [Vol rate/Area] 29 mL/min/{1.73_m2} Low >60 [facility] Comment on above: mL/min/1.73m2 CKD-EP I Creatinine Equation (2020) Potassium measurement (mass/ volume)Ordered By: Catrina Mendoza on 11-25-2024 Potassium (Unsp spec) [Mass/Vol] 3.5 mmol/L 3.3-5.1 [facility] Renal Profileon 11-25-2024 Albumin [Mass/Vol] 4.3 g/dL Normal 3.4-4.8 [facility] Comment on above: Performed By: #### L 500.3600 #### [facility] [address] [place], [address] BUN/CRE 14.6 RATIO Normal 10-20 [facility] Comment on above: Performed By: #### L 500.3600 #### [facility] [address] [place], [address] Calcium [Mass/Vol] 9.7 mg/dL Normal 7.6-11.0 [facility] Comment on above: Performed By: #### L 500.3600 #### [facility] [address] [place], [address] Chloride [Moles/Vol] 95 mmol/L Low 98-108 [facility] Comment on above: Performed By: #### L 500.3600 #### [facility] [address] [place], [address] CO2 [Moles/Vol] 23.8 mmol/L Normal 21.0-32.0 [facility] Comment on above: Performed By: #### L 500.3600 #### [facility] [address] [place], [address] Creatinine [Mass/Vol] 1.87 mg/dL High 0.70-1.20 [facility] Comment on above: Performed By: #### L 500.3600 #### [facility] [address] [place], [address] GAP 16 High 5-15 [facility] Comment on above: Performed By: #### L 500.3600 #### [facility] [address] [place], [address] GFR/1.73 sq M.predicted among non-blacks MDRD (S/P/Bld) [Vol rate/Area] 29 mL/min/{1.73_m2} Low >60 [facility] Comment on above: Result Comment: mL/m in/1.73m2 CKD-EPI Creatinine Equation (2020) Performed By: #### L 500.3600 #### [facility] [address] [place], [address] Glucose [Mass/Vol] 133 mg/dL High 70-99 [facility] Comment on above: Performed By: #### L 500.3600 #### [facility] [address] [place], [address] Phosphate [Mass/Vol] 2.7 mg/dL Normal 2.7-4.5 [facility] Comment on above: Performed By: #### L 500.3600 #### [facility] [address] [place], [address] Potassium [Moles/Vol] 3.5 mmol/L Normal 3.3-5.1 [facility] Comment on above: Performed By: #### L 500.3600 #### [facility] [address] [place], [address] Sodium [Moles/Vol] 135 mmol/L Normal 133-145 [facility] Comment on above: Performed By: #### L 500.3600 #### [facility] [address] [place], [address] Urea nitrogen [Mass/Vol] 27 mg/dL High 4-19 [facility] Comment on above: Performed By: #### L 500.3600 #### [facility] [address] [place], [address] Serum creatinine measurement (mass/volume)Ordered By: Catrina Mendoza on 11-25-2024 Creatinine [Mass/Vol] 1.87 mg/dL High 0.70-1.20 [facility] Serum glucose measurement (m ass/volume)Ordered By: Catrina Mendoza on 11-25-2024 Glucose [Mass/Vol] 133 mg/dL High 70-99 [facility] Serum or plasma albumin judi urement (mass/volume)Ordered By: Catrina Mendoza on 11-25-2024 Albumin [Mass/Vol] 4.3 g/dL 3.4-4.8 [facility] Serum or plasma calcium judi urement (mass/volume)Ordered By: Catrina Mendoza on 11-25-2024 Calcium [Mass/Vol] 9.7 mg/dL 7.6-11.0 [facility] Serum or plasma urea nitroge n measurement (mass/volume)Ordered By: Catrina Mendoza on 11-25-2024 Urea nitrogen [Mass/Vol] 27 mg/dL High 4-19 [facility] Sodium levelOrdered By: Brittany Mendoza on 11-25-2024 Sodium [Moles/Vol] 135 mmol/L 133-145 [facility] CBC W/Diff, Automatedon 01-0 Absolute Lymph 3.13 X10 3/uL Normal 0.83-4.51 [facility] Comment on above: Performed By: #### L 500.4100, L506.1000, L100.0100, L500.4050, [id number] #### [facility] [address] [place], [address] Absolute Neut 6.7 X10 3/uL Normal 2.0-7.7 [facility] Comment on above: Performed By: #### L 500.4100, L506.1000, L100.0100, L500.4050, [id number] #### [facility] [address] [place], [address] Basophils/100 WBC (Bld) 0.5 % Normal 0-1 [facility] Comment on above: Performed By: #### L 500.4100, L506.1000, L100.0100, L500.4050, [id number] #### [facility] [address] [place], [address] Eosinophils/100 WBC (Bld) 1.9 % Normal 0-5 [facility] Comment on above: Performed By: #### L 500.4100, L506.1000, L100.0100, L500.4050, [id number] #### [facility] [address] [place], [address] Erythrocyte distribution width (RBC) [Ratio] 14.7 % High 11.6-14.6 [facility] Comment on above: Performed By: #### L 500.4100, L506.1000, L100.0100, L500.4050, [id number] #### [facility] [address] [place], [address] Hematocrit (Bld) [Volume fraction] 46.6 % Normal 37-47 [facility] Comment on above: Performed By: #### L 500.4100, L506.1000, L100.0100, L500.4050, [id number] #### [facility] [address] [place], [address] Hemoglobin (Bld) [Mass/Vol] 14.9 g/dL Normal 12.0-15.0 [facility] Comment on above: Performed By: #### L 500.4100, L506.1000, L100.0100, L500.4050, [id number] #### [facility] [address] [place], [address] IG% 0.600 Normal 0.0-0.9 [facility] Comment on above: Result Comment: IG% - Immature Granulocytes (promyelocytes, myelocytes and metamyelocytes) > 1% indicates that a LEFT SHIFT is Present. Performed By: #### L 500.4100, L506.1000, L100.0100, L500.4050, L501.9520 #### [facility] [address] [place], [address] Lymphocytes/100 WBC (Bld) 28.7 % Normal 19-41 [facility] Comment on above: Performed By: #### L 500.4100, L506.1000, L100.0100, L500.4050, [id number] #### [facility] [address] [place], [address] MCH (RBC) [Entitic mass] 27.7 pg Normal 27.0-32.0 [facility] Comment on above: Performed By: #### L 500.4100, L506.1000, L100.0100, L500.4050, [id number] #### [facility] [address] [place], [address] MCHC (RBC) [Mass/Vol] 32.0 g/dL Normal 32-36 [facility] Comment on above: Performed By: #### L 500.4100, L506.1000, L100.0100, L500.4050, [id number] #### [facility] [address] [place], [address] MCV (RBC) [Entitic vol] 86.6 fL Normal 81-99 [facility] Comment on above: Performed By: #### L 500.4100, L506.1000, L100.0100, L500.4050, [id number] #### [facility] [address] [place], [address] Monocytes/100 WBC (Bld) 7.2 % Normal 0-10 [facility] Comment on above: Performed By: #### L 500.4100, L506.1000, L100.0100, L500.4050, [id number] #### [facility] [address] [place], [address] Neutrophils/100 WBC (Bld) 61.1 % Normal 47-70 [facility] Comment on above: Performed By: #### L 500.4100, L506.1000, L100.0100, L500.4050, [id number] #### [facility] [address] [place], [address] Nucleated RBC (Bld) [#/Vol] 0 10*3/uL Normal 0-5 [facility] Comment on above: Performed By: #### L 500.4100, L506.1000, L100.0100, L500.4050, [id number] #### [facility] [address] [place], [address] Platelet mean volume (Bld) [Entitic vol] 10.4 fL Normal 6.2-12.0 [facility] Comment on above: Performed By: #### L 500.4100, L506.1000, L100.0100, L500.4050, [id number] #### [facility] [address] [place], [address] Platelets (Bld) [#/Vol] 285 10*3/uL Normal 150-450 [facility] Comment on above: Performed By: #### L 500.4100, L506.1000, L100.0100, L500.4050, [id number] #### [facility] [address] [place], [address] RBC (Bld) [#/Vol] 5.38 10*6/uL Normal 4.2-5.4 [facility] Comment on above: Performed By: #### L 500.4100, L506.1000, L100.0100, L500.4050, L501.9520 #### [facility] [address] [place], [address] RDW SD 46.7 fl High 35.1-43.9 [facility] Comment on above: Performed By: #### L 500.4100, L506.1000, L100.0100, L500.4050, [id number] #### [facility] [address] [place], [address] WBC (Bld) [#/Vol] 10.9 10*3/uL Normal 4.4-11.0 [facility] Comment on above: Performed By: #### L 500.4100, L506.1000, L100.0100, L500.4050, [id number] #### [facility] [address] [place], [address] Comprehensive Metabolic Prof ilon 04-29-2024 Albumin [Mass/Vol] 3.8 g/dL Normal 3.2-5.0 [facility] Comment on above: Performed By: #### L 500.4100, L506.1000, L100.0100, L500.4050, L501.9520 #### [facility] [address] [place], [address] Albumin/Globulin [Mass ratio] 0.9 {ratio} Normal 0.9-2.4 [facility] Comment on above: Performed By: #### L 500.4100, L506.1000, L100.0100, L500.4050, L501.9520 #### [facility] [address] [place], [address] ALK P 99 U/L Normal 45-117 [facility] Comment on above: Performed By: #### L 500.4100, L506.1000, L100.0100, L500.4050, L501.9520 #### [facility] [address] [place], [address] ALT [Catalytic activity/Vol] 28 U/L Normal 13-56 [facility] Comment on above: Performed By: #### L 500.4100, L506.1000, L100.0100, L500.4050, L501.9520 #### [facility] [address] [place], [address] AST [Catalytic activity/Vol] 13 U/L Low 15-37 [facility] Comment on above: Performed By: #### L 500.4100, L506.1000, L100.0100, L500.4050, L501.9520 #### [facility] [address] [place], [address] Bilirubin [Mass/Vol] 0.40 mg/dL Normal 0.20-1.00 [facility] Comment on above: Result Comment: For patients on eltrombopag therapy, use of Dimension [place] TBIL is not recommended. Performed By: #### L 500.4100, L506.1000, L100.0100, L500.4050, L501.9520 #### [facility] [address] [place], [address] BUN/CRE 18.3 RATIO Normal 10-20 [facility] Comment on above: Performed By: #### L 500.4100, L506.1000, L100.0100, L500.4050, L501.9520 #### [facility] [address] [place], [address] CA,Total 9.4 mg/dL Normal 8.5-10.1 [facility] Comment on above: Performed By: #### L 500.4100, L506.1000, L100.0100, L500.4050, L501.9520 #### [facility] [address] [place], [address] Chloride [Moles/Vol] 109 mmol/L High 98-107 [facility] Comment on above: Performed By: #### L 500.4100, L506.1000, L100.0100, L500.4050, L501.9520 #### [facility] [address] [place], [address] CO2 [Moles/Vol] 24.0 mmol/L Normal 21.0-32.0 [facility] Comment on above: Performed By: #### L 500.4100, L506.1000, L100.0100, L500.4050, L501.9520 #### [facility] [address] [place], [address] Creatinine [Mass/Vol] 1.42 mg/dL High 0.55-1.02 [facility] Comment on above: Result Comment: The validity of the calculated GFR GFRAA in patients over 70 years has not been determined. Clinical correlation is essential. Performed By: #### L 500.4100, L506.1000, L100.0100, L500.4050, L501.9520 #### [facility] [address] [place], [address] EST GFR - AA 48 mL/min Low >60 [facility] Comment on above: Result Comment: Afri can Palauan GFR Calc Performed By: #### L 500.4100, L506.1000, L100.0100, L500.4050, L501.9520 #### [facility] [address] [place], [address] GAP 5 Normal 5-15 [facility] Comment on above: Performed By: #### L 500.4100, L506.1000, L100.0100, L500.4050, L501.9520 #### [facility] [address] [place], [address] GFR/1.73 sq M.predicted among non-blacks MDRD (S/P/Bld) [Vol rate/Area] 39 mL/min/{1.73_m2} Low >60 [facility] Comment on above: Result Comment: Non- GFR Calc Performed By: #### L 500.4100, L506.1000, L100.0100, L500.4050, L501.9520 #### [facility] [address] [place], [address] Globulin (S) [Mass/Vol] 4.2 g/dL Normal 2.2-4.2 [facility] Comment on above: Performed By: #### L 500.4100, L506.1000, L100.0100, L500.4050, L501.9520 #### [facility] [address] [place], [address] Glucose [Mass/Vol] 100 mg/dL Normal 74-106 [facility] Comment on above: Result Comment: Fast ing Glucose result from 100 to 125 mg/dL suggests IMPAIRED HOMEOSTASIS per A.D.A. criteria. Performed By: #### L 500.4100, L506.1000, L100.0100, L500.4050, L501.9520 #### [facility] [address] [place], [address] Potassium [Moles/Vol] 3.9 mmol/L Normal 3.5-5.1 [facility] Comment on above: Performed By: #### L 500.4100, L506.1000, L100.0100, L500.4050, L501.9520 #### [facility] [address] [place], [address] Sodium [Moles/Vol] 138 mmol/L Normal 136-145 [facility] Comment on above: Performed By: #### L 500.4100, L506.1000, L100.0100, L500.4050, L501.9520 #### [facility] [address] [place], [address] T PROT 8.0 g/dL Normal 6.4-8.2 [facility] Comment on above: Performed By: #### L 500.4100, L506.1000, L100.0100, L500.4050, L501.9520 #### [facility] [address] [place], [address] Urea nitrogen [Mass/Vol] 26 mg/dL High 7-18 [facility] Comment on above: Performed By: #### L 500.4100, L506.1000, L100.0100, L500.4050, L501.9520 #### [facility] [address] [place], [address] Lipid Profileon 04-29-2024 Cholesterol [Mass/Vol] 203 mg/dL High 200 [facility] Comment on above: Result Comment: <200 mg/dL Desirable 200-240 mg/dL Borderline >240 mg/dL High Risk Performed By: #### L 500.4100, L506.1000, L100.0100, L500.4050, L501.9520 #### [facility] [address] [place], [address] Cholesterol in HDL [Mass/Vol] 70 mg/dL Normal [facility] Comment on above: Result Comment: The drugs N-Acetylcysteine and Metamizole may falsely depress this assay. Reference Range HDL <40 mg/dL Low HDL Cholesterol HDL >or= 60 mg/dL High HDL Cholesterol Performed By: #### L 500.4100, L506.1000, L100.0100, L500.4050, L501.9520 #### [facility] [address] [place], [address] Cholesterol in LDL [Mass/Vol] 103 mg/dL Normal 0-130 [facility] Comment on above: Performed By: #### L 500.4100, L506.1000, L100.0100, L500.4050, L501.9520 #### [facility] [address] [place], [address] Cholesterol in VLDL [Mass/Vol] 30 mg/dL Normal 5-40 [facility] Comment on above: Performed By: #### L 500.4100, L506.1000, L100.0100, L500.4050, L501.9520 #### [facility] [address] [place], [address] Triglyceride [Mass/Vol] 151 mg/dL Normal [facility] Comment on above: Result Comment: The drugs N-Acetylcysteine and Metamizole may falsely depress this assay. Serum Triglycerides Reference Interval Normal <150 mg/dL Borderline high 150 - 199 mg/dL High 200 - 499 mg/dL Very High > or = 500 mg/dL Performed By: #### L 500.4100, L506.1000, L100.0100, L500.4050, L501.9520 #### [facility] [address] [place], [address] Thyroid Stim Hormone (TSH)on 04-29-2024 TSH 2.950 uIU/mL Normal 0.358-3.740 [facility] Comment on above: Performed By: #### L 500.4100, L506.1000, L100.0100, L500.4050, L501.9520 #### [facility] [address] [place], [address] Vitamin D,25 Hydroxyon 04-29 Vitamin D 25-OH 18.1 ng/mL Normal [facility] Comment on above: Result Comment: Safia min D 25(OH) Status Range Deficiency <20 ng/mL (50nmol/L) Insufficiency 20 - 30 ng/mL (50 - 75 nmol/L) Sufficiency 30 - 100 ng/mL (75 - 250 nmol/L) Toxicity >100 ng/mL (>250 nmol/L) Performed By: #### L 500.4100, L506.1000, L100.0100, L500.4050, L501.9520 #### [facility] [address] [place], [address] Basophil percentageOrdered B y: Catrina Reji on 05-29-2023 Basophil percentage 3.1 mg/dL 2.5-4.9 [place] Chloride [Moles/Vol] 110 mmol/L 98-[address] [facility] Glucose [Mass/Vol] 93 mg/dL 74-106 [place] [facility] Potassium [Moles/Vol] 4.4 mmol/L 3.5-5.1 [facility] Sodium [Moles/Vol] 140 mmol/L 136-145 [facility] - Chemistry and C hemistry - challengeOrdered By: Catrina Mendoza on 05-29-2023 CO2 [Moles/Vol] 26.0 mmol/L 21.0-32.0 [facility] Urea nitrogen/Creatinine [Mass ratio] 15.3 mg/mg 10-20 [facility] No Panel InformationOrdered By: Catrina Mendoza on 05-29-2023 Estimated GFR (MDRD) Amer 47 mL/min >60 [facility] Comment on above: GFR Calc Estimated GFR (MDRD) Non-Af Amer 39 mL/min >60 [facility] Comment on above: Non- GFR Calc Serum or plasma calcium judi urement (mass/volume)Ordered By: Catrina Mendoza on 05-29-2023 Calcium [Mass/Vol] 9.6 mg/dL 8.5-10.1 [facility] Serum or plasma creatinine m easurement (mass/volume)Ordered By: Catrina Mendoza on 05-29-2023 Creatinine [Mass/Vol] 1.44 mg/dL 0.55-1.02 [facility] Comment on above: The validity of the calculated GFR & GFRAA in patients over 70 years has not been determined. Clinical correlation is essential. Serum or plasma urea nitroge n measurement (mass/volume)Ordered By: Catrina Mendoza on 05-29-2023 Urea nitrogen [Mass/Vol] 22 mg/dL 7-18 [facility] Thin prep Papanicolaou smear with manual screeningOrdered By: Catrina Mendoza on 05-29-2023 Thin prep Papanicolaou smear with manual screening 3.7 g/dL 3.2-5.0 [facility] Absolute lymphocyte countOrd ered By: Mamadou Ramires on 04-24-2023 Lymphocytes Auto (Unsp spec) [#/Vol] 3.29 10*3/uL 0.83-4.51 [facility] Basophil percentageOrdered B y: Mamadou Ramires on 04-24-2023 Basophils/100 WBC (Bld) 0.5 % 0-1 [facility] Bilirubin [Mass/Vol] 0.40 mg/dL 0.20-1.00 [facility] Comment on above: For patients on eltr ombopag therapy, use of Dimension [place] TBIL is not recommended. Chloride [Moles/Vol] 106 mmol/L 98-107 [facility] Eosinophils/100 WBC (Bld) 1.4 % 0-5 [facility] Glucose [Mass/Vol] 89 mg/dL 74-106 [facility] Neutrophils (Bld) [#/Vol] 7.5 10*3/uL 2.0-7.7 [facility] Neutrophils/100 WBC (Bld) 63.8 % 47-70 [facility] Potassium [Moles/Vol] 4.3 mmol/L 3.5-5.1 [facility] Protein [Mass/Vol] 7.9 g/dL 6.4-8.2 [facility] Sodium [Moles/Vol] 139 mmol/L 136-145 [facility] WBC (Bld) [#/Vol] 11.8 10*3/uL 4.4-11.0 [facility] Blood erythrocytes count (nu mber/volume)Ordered By: Mamadou Ramires on 04-24-2023 RBC (Bld) [#/Vol] 5.12 10*6/uL 4.2-5.4 [facility] Blood hemoglobin measurement (mass/volume)Ordered By: Mamadou Ramires on 04-24-2023 Hemoglobin (Bld) [Mass/Vol] 14.4 g/dL 12.0-15.0 [facility] Blood lymphocytes/100 leukoc ytesOrdered By: Mamadou Ramires on 04-24-2023 Lymphocytes/100 WBC (Bld) 27.8 % 19-41 [facility] Blood monocytes/100 leukocyt esOrdered By: Mamadou Ramires on 04-24-2023 Monocytes/100 WBC (Bld) 5.8 % 0-10 [facility] Blood platelet mean volumeOr dered By: Mamadou Ramires on 04-24-2023 Platelet mean volume (Bld) [Entitic vol] 10.7 fL 6.2-12.0 [facility] Determination of erythrocyte mean corpuscular volume (MCV)Ordered By: Mamadou Ramires on 04-24-2023 MCV (RBC) [Entitic vol] 89.8 fL 81-99 [facility] Hematocrit Auto (Bld) [Volum e fraction]Ordered By: Mamadou Ramires on 04-24-2023 Hematocrit (Bld) [Volume fraction] 46.0 % 37-47 [facility] Laboratory - Chemistry and C hemistry - challengeOrdered By: Mamadou Ramires on 04-24-2023 ALP [Catalytic activity/Vol] 92 U/L 45-117 [facility] ALT [Catalytic activity/Vol] 31 U/L 13-56 [facility] CO2 [Moles/Vol] 27.0 mmol/L 21.0-32.0 [facility] Globulin (S) [Mass/Vol] 4.2 g/dL 2.2-4.2 [facility] Urea nitrogen/Creatinine [Mass ratio] 16.1 mg/mg 10-20 [facility] Laboratory - Hematology and Cell countsOrdered By: Mamadou Ramires on 04-24-2023 Erythrocyte distribution width (RBC) [Entitic vol] 46.8 fL 35.1-43.9 [facility] Erythrocyte distribution width (RBC) [Ratio] 14.1 % 11.6-14.6 [facility] Immature granulocytes/100 WBC (Bld) 0.700 % 0.0-0.9 [facility] Comment on above: IG% - Immature Granu locytes (promyelocytes, myelocytes and metamyelocytes) > 1% indicates that a LEFT SHIFT is Present. MCH (RBC) [Entitic mass] 28.1 pg 27.0-32.0 [facility] Nucleated RBC/100 WBC (Bld) [Ratio] 0 % 0-5 [facility] MCHC Auto (RBC) [Mass/Vol]Or dered By: Mamadou Ramires on 04-24-2023 MCHC (RBC) [Mass/Vol] 31.3 g/dL 32-36 [facility] No Panel InformationOrdered By: Mamadou Ramires on 04-24-2023 Estimated GFR (MDRD) Amer 45 mL/min >60 [facility] Comment on above: GFR Calc Estimated GFR (MDRD) Non-Af Amer 37 mL/min >60 [facility] Comment on above: Non- GFR Calc Thyroid Stimulating Hormone (TSH) 3.77 uIU/mL 0.358-3.74 [facility] Vitamin D 25-Hydroxy 22.9 ng/mL [facility] Comment on above: Vitamin D 25(OH) Sta tus Range Deficiency <20 ng/mL (50nmol/L) Insufficiency 20 - 30 ng/mL (50 - 75 nmol/L) Sufficiency 30 - 100 ng/mL (75 - 250 nmol/L) Toxicity >100 ng/mL (>250 nmol/L) Platelets bldOrdered By: Mamadou Ramires on 04-24-2023 Platelets (Bld) [#/Vol] 299 10*3/uL 150-450 [facility] Serum or plasma albumin judi urement (mass/volume)Ordered By: Mamadou Ramires on 04-24-2023 Albumin [Mass/Vol] 3.7 g/dL 3.2-5.0 [facility] Serum or plasma albumin/glob ulin mass ratioOrdered By: Mamadou Ramires on 04-24-2023 Albumin/Globulin [Mass ratio] 0.9 {ratio} 0.9-2.4 [facility] Serum or plasma calcium judi urement (mass/volume)Ordered By: Mamadou Raimres on 04-24-2023 Calcium [Mass/Vol] 9.9 mg/dL 8.5-10.1 [facility] Serum or plasma creatinine m easurement (mass/volume)Ordered By: Mamadou Ramires on 04-24-2023 Creatinine [Mass/Vol] 1.49 mg/dL 0.55-1.02 [facility] Comment on above: The validity of the calculated GFR & GFRAA in patients over 70 years has not been determined. Clinical correlation is essential. Serum or plasma urea nitroge n measurement (mass/volume)Ordered By: Mamadou Ramires on 04-24-2023 Urea nitrogen [Mass/Vol] 24 mg/dL 7-18 [facility] Thin prep Papanicolaou smear with manual screeningOrdered By: Mamadou Ramires on 04-24-2023 Thin prep Papanicolaou smear with manual screening 16 U/L 15-37 [facility] Thin prep Papanicolaou smear with manual screening 6 5-15 [facility] Absolute lymphocyte counton 04-19-2022 Lymphocytes Auto (Unsp spec) [#/Vol] 3.01 10*3/uL 0.83-4.51 [facility] Work Phone: Basophil percentageon 2021 Basophils/100 WBC (Bld) 0.5 % 0-1 [facility] Work Phone: Bilirubin [Mass/Vol] 0.30 mg/dL 0.20-1.00 [facility] Work Phone: Comment on above: For patients on eltr ombopag therapy, use of Dimension [place] TBIL is not recommended. Chloride [Moles/Vol] 106 mmol/L 98-107 [facility] Work Phone: Eosinophils/100 WBC (Bld) 2.2 % 0-5 [facility] Work Phone: Glucose [Mass/Vol] 126 mg/dL 74-106 [facility] Work Phone: Comment on above: Fasting Glucose resu lt greater than or equal to 126 mg/dL suggests DIABETES MELLITUS per A.D.A. criteria. Neutrophils (Bld) [#/Vol] 6.7 10*3/uL 2.0-7.7 [facility] Work Phone: Neutrophils/100 WBC (Bld) 61.6 % 47-70 [facility] Work Phone: Potassium [Moles/Vol] 3.8 mmol/L 3.5-5.1 [facility] Work Phone: Protein [Mass/Vol] 7.6 g/dL 6.4-8.2 [facility] Work Phone: Sodium [Moles/Vol] 139 mmol/L 136-145 [facility] Work Phone: WBC (Bld) [#/Vol] 10.9 10*3/uL 4.4-11.0 [facility] Work Phone: Blood erythrocytes count (nu mber/volume)on 04-19-2022 RBC (Bld) [#/Vol] 5.23 10*6/uL 4.2-5.4 [facility] Work Phone: Blood hemoglobin measurement (mass/volume)on 04-19-2022 Hemoglobin (Bld) [Mass/Vol] 14.7 g/dL 12.0-15.0 [facility] Work Phone: Blood lymphocytes/100 leukoc yteson 04-19-2022 Lymphocytes/100 WBC (Bld) 27.5 % 19-41 [facility] Work Phone: Blood monocytes/100 leukocyt eson 04-19-2022 Monocytes/100 WBC (Bld) 7.1 % 0-10 [facility] Work Phone: Blood platelet mean volumeon 04-19-2022 Platelet mean volume (Bld) [Entitic vol] 11.3 fL 6.2-12.0 [facility] Work Phone: Determination of erythrocyte mean corpuscular volume (MCV)on 04-19-2022 MCV (RBC) [Entitic vol] 88.1 fL 81-99 [facility] Work Phone: Hematocrit Auto (Bld) [Volum e fraction]on 04-19-2022 Hematocrit (Bld) [Volume fraction] 46.1 % 37-47 [facility] Work Phone: Laboratory - Chemistry and C hemistry - challengeon 04-19-2022 ALP [Catalytic activity/Vol] 86 U/L 45-117 [facility] Work Phone: ALT [Catalytic activity/Vol] 31 U/L 13-56 [facility] Work Phone: CO2 [Moles/Vol] 25.0 mmol/L 21.0-32.0 [facility] Work Phone: Globulin (S) [Mass/Vol] 3.9 g/dL 2.2-4.2 [facility] Work Phone: Urea nitrogen/Creatinine [Mass ratio] 15.7 mg/mg 10-20 [facility] Work Phone: Laboratory - Hematology and Cell countson 04-19-2022 Erythrocyte distribution width (RBC) [Entitic vol] 47.4 fL 35.1-43.9 [facility] Work Phone: Erythrocyte distribution width (RBC) [Ratio] 14.6 % 11.6-14.6 [facility] Work Phone: Immature granulocytes/100 WBC (Bld) 1.100 % 0.0-0.9 [facility] Work Phone: Comment on above: IG% - Immature Granu locytes (promyelocytes, myelocytes and metamyelocytes) > 1% indicates that a LEFT SHIFT is Present. MCH (RBC) [Entitic mass] 28.1 pg 27.0-32.0 [facility] Work Phone: Nucleated RBC/100 WBC (Bld) [Ratio] 0 % 0-5 [facility] Work Phone: MCHC Auto (RBC) [Mass/Vol]on 04-19-2022 MCHC (RBC) [Mass/Vol] 31.9 g/dL 32-36 [facility] Work Phone: No Panel Informationon 04-19 Estimated GFR (MDRD) Amer 38 mL/min >60 [facility] Work Phone: Comment on above: GFR Calc Estimated GFR (MDRD) Non-Af Amer 32 mL/min >60 [facility] Work Phone: Comment on above: Non- GFR Calc Thyroid Stimulating Hormone (TSH) 4.34 uIU/mL 0.358-3.74 [facility] Work Phone: Platelets bldon 04-19-2022 Platelets (Bld) [#/Vol] 321 10*3/uL 150-450 [facility] Work Phone: Serum or plasma albumin judi urement (mass/volume)on 04-19-2022 Albumin [Mass/Vol] 3.7 g/dL 3.2-5.0 [facility] Work Phone: Serum or plasma albumin/glob ulin mass ratioon 04-19-2022 Albumin/Globulin [Mass ratio] 0.9 {ratio} 0.9-2.4 [facility] Work Phone: Serum or plasma calcium judi urement (mass/volume)on 04-19-2022 Calcium [Mass/Vol] 9.1 mg/dL 8.5-10.1 [place] [facility] Work Phone: Serum or plasma creatinine m easurement (mass/volume)on 04-19-2022 Creatinine [Mass/Vol] 1.72 mg/dL 0.55-1.02 [facility] Work Phone: Comment on above: The validity of the calculated GFR & GFRAA in patients over 70 years has not been determined. Clinical correlation is essential. Serum or plasma urea nitroge n measurement (mass/volume)on 04-19-2022 Urea nitrogen [Mass/Vol] 27 mg/dL 7-18 [facility] Work Phone: Thin prep Papanicolaou smear with manual screeningon 04-19-2022 Thin prep Papanicolaou smear with manual screening 15 U/L 15-37 [facility] Work Phone: Thin prep Papanicolaou smear with manual screening 8 5-15 [facility] Work Phone: Laboratory - Microbiology an d Antimicrobial susceptibilityon 08-18-2021 SARS-CoV-2 (COVID-19) RNA CHEO+probe Ql (Unsp spec) Not detected Not Detect [facility] Work Phone: Comment on above: Normal Reference Ran ge: Not DetectedMethod:(RT-PCR) real-time reverse transcriptase PCRLuminex LULY Instrument*The Food and Drug Administration (FDA) has issued an Emergency Use Authorization (EAU) for the LULY SARS-CoV-2 Assay for the rapid detection of the virus that causes COVID-19. This test has been validated, but the FDAs independent review of this validation is pending.*Negative results do not preclude infection and should not be used as the sole basis for treatment or patient management. Optimum specimen types and timing for peak viral levels during infections caused by SARS-CoV-2 have not been determined. Collection of multiple specimens from the same patient may be necessary to detect the virus. The possibility of a false negative result should be considered if the patient has clinical presentation or has had recent exposure. No Panel Informationon 08-18 Influenza Types A,B Direct FA (MEREDITH) [facility] Work Phone: Basophil percentageon 2021 Basophil percentage 2.5 mg/dL 2.5-4.9 [facility] Work Phone: Chloride [Moles/Vol] 108 mmol/L 98-[address] [facility] [facility] Work Phone: Glucose [Mass/Vol] 113 mg/dL 74-106 [facility] Work Phone: Comment on above: Fasting Glucose resu lt from 100 to 125 mg/dL suggests IMPAIRED HOMEOSTASIS per A.D.A. criteria. Potassium [Moles/Vol] 4.4 mmol/L 3.5-5.1 [facility]: Sodium [Moles/Vol] 143 mmol/L 136-145 [facility] Work Phone: Laboratory - Chemistry and C hemistry - challengeon 08-09-2021 CO2 [Moles/Vol] 26.0 mmol/L 21.0-32.0 [facility] Work Phone: Urea nitrogen/Creatinine [Mass ratio] 12.4 mg/mg 10-20 [facility] Work Phone: No Panel Informationon 08-09 Estimated GFR (MDRD) Amer 47 mL/min >60 [facility] Work Phone: Comment on above: GFR Calc Estimated GFR (MDRD) Non-Af Amer 39 mL/min >60 [facility] Work Phone: Comment on above: Non- GFR Calc Serum or plasma albumin judi urement (mass/volume)on 08-09-2021 Albumin [Mass/Vol] 3.6 g/dL 3.2-5.0 [facility] Work Phone: Serum or plasma calcium judi urement (mass/volume)on 08-09-2021 Calcium [Mass/Vol] 8.9 mg/dL 8.5-10.1 [facility] Work Phone: Serum or plasma creatinine m easurement (mass/volume)on 08-09-2021 Creatinine [Mass/Vol] 1.45 mg/dL 0.55-1.02 [facility] Work Phone: Comment on above: The validity of the calculated GFR & GFRAA in patients over 70 years has not been determined. Clinical correlation is essential. Serum or plasma urea nitroge n measurement (mass/volume)on 08-09-2021 Urea nitrogen [Mass/Vol] 18 mg/dL 7-18 [facility] Work Phone: No Panel Informationon 06-07 Thyroid Stimulating Hormone (TSH) 2.66 uIU/mL 0.358-3.74 [facility] Work Phone: Encounters Encounter Date Encounter Type Care Provider Facility Start: 01-13-2025 ambulatory [facility] Facility:[facility] Start: 11-25-2024 End: 11-25-[address] Mamadou Ramires MD Work Phone: -Laboratory Start: 11-25-2024 End: 11-25-[address] Catrina Mendoza DO -Laboratory Work Phone: Start: 11-25-2024 End: 11-25-2024 ambulatory Catrina Mendoza Facility:[facility] Start: 04-29-2024 End: 04-29-2024 ambulatory Mamadou Ramires Facility:[facility] Start: 05-29-2023 End: 05-29-2023 ambulatory [facility] Work Phone: Start: 05-29-2023 End: 05-29-2023 Patient encounter procedure [facility]-Laboratory Work Phone: Start: 04-24-2023 End: 04-24-2023 ambulatory [facility] Work Phone: Start: 04-24-2023 End: 04-24-2023 Patient encounter procedure [facility]-Laboratory, Phy Office 3rd Flr Start: 04-19-2022 End: 04-19-2022 ambulatory [facility] Work Phone: Start: 04-19-2022 End: 04-19-2022 Patient encounter procedure [facility]-Laboratory, y Office 3rd Flr Start: 08-18-2021 End: 08-18-2021 Patient encounter procedure [facility]-Pulmonary Services/Neurology Start: 08-09-2021 End: 08-09-2021 Patient encounter procedure [facility]-Laboratory Start: 06-07-2021 End: 06-07-2021 Patient encounter procedure [facility]-Laboratory Procedures Date Procedure Procedure Detail Performing Clinician Start: 11-25-2024 Serum inorganic phos phate measurement Dr. Mamadou Ramires MD Work Phone: Start: 08-18-2021 Influenza Types A,B Direct FA (MEREDITH) Start: 08-18-2021 End: 08-18-2021 Respiratory syncytial virus antigen assay Immunizations Immunization Date Immunization Notes Care Provider Fa cility 02-20-2019 Influenza virus vaccine [facility] Payers Date Payer Category Payer Private Health Insurance [id number] 2024 Private Health Insurance [id number] [id number] Self-pay [id number] Private Health Insurance [id number] Self-pay . Unknown [id number] Unknown [id number] Unknown [id number] Social History Date Type Detail Facility Start: 03-14-2020 End: 03-14-2020 Tobacco smoking status NHIS Unknown if ever smoked [facility] Start: 03-14-2020 Heavy [facility] Start: 03-14-2020 None [facility] Start: 03-14-2020 Spouse/ Signif icant Other [facility] Start: 03-14-2020 Non-smoker [facility] Start: 1955 Sex Assigned At Female [facility] Start: 03-14-2020 Tobacco smoking status NHIS Ex-smoker (finding) [facility] Evaluation note Note Date & Type Note Facility Evaluation note No assessment information availa ble [facility] Work Phone: Reason for referral (narrative) Note Date & Type Note Facility Reason for referral (narrative) No reason for referral information available [facility] Work Phone: Chief Complaint and Reason for Visit Chief Complaint VIRAL SYMPTOMS Chief Complaint CHRONIC KIDNEY DISEA SE Chief Complaint Admit Date LABS November 25, 2024 12: 45pm Family History No Family History Records Found Relationship Condition Age at Onset Recorded Date/T debby Unknown [facility] History?[facility] 7:18[facility] Family History?Hypertension Unknown March 14, 2020 7:18am Relationship Condition Age at Onset Recorded Date/T debby Unknown Family History?Diabetes Unknown [facility] 2019 6:18am Family History?Hypertension Unknown March 14, 2020 6:18am Advance Directives No Advanced Directives Records Found Advance Directive Response Recorded Date/ Time Living Will Yes March 14 9:01am Power of Administrative Volunteer Yes March 14, 2020 9:01am Advance Directive Response Recorded Date/ Time Living Will Yes March 14 8:01am Power of Administrative Volunteer Yes March 14, 2020 8:01am Summary Purpose Additional Source Comments Goals (unrecognized section and content) Goals may be documented in a n alternate sectionGoals may be documented in an alternate sectionGoals may be documented in an alternate sectionGoals may be documented in an alternate sectionGoals may be documented in an alternate section Care Teams (unrecognized sec tion and content) Team Status: Active Member Role Status Dates Dr. Adolph Ross DO Family Provider Active Dr. Mamadou Ramires MD Primary Care Provider Active Team Status: Inactive Member Role Status Dates Dr. Mamadou Ramires MD Primary Care Provider, Attending Provider Active Team Status: Inactive Member Role Status Dates Dr. Mamadou Ramires MD Primary Care Provider Active Dr. Catrina Mendoza DO Attending Provider, Referring Winsome gailzenon Active Team Status: Active Member Role/Relationship Status Dates Dr. Mamadou Ramires MD Primary Care Provider Active Team Status: Inactive Member Role/Relationship Status Dates Dr. Mamadou Ramires MD Primary Care Provider Active Start: November 25, 2024 End: November 25, 2024 Dr. Catrina Mendoza DO Attending Provider Active Start: November 25, 2024 End: November 25, 2024 Dr. Catrian Mendoza DO Referring Provider Active Start: November 25, 2024 End: November 25, 2024 INFORMATION SOURCE (unrecogn ized section and content) DATE CREATED AUTHOR 01/04/2025 [facility] FOR RECORDS PERTAINING TO PATIENTS WHO ARE OR HAVE BEEN ENROLLED IN A CHEMICAL DEPENDENCY/SUBSTANCEABUSE PROGRAM, SOME INFORMATION MAY BE OMITTED. This clinical summary was aggregated from multiple sources. Caution should be exercised in using it in the provision of clinical care. This summary normalizes information from multiple sources, and as a consequence, information in this document may materially change the coding, format and clinical context of patient data. In addition, data may be omitted in some cases. CLINICAL DECISIONS SHOULD BE BASED ON THE PRIMARY CLINICAL RECORDS. [employer] provides no warranty or guarantee of the accuracy or completeness of information in this document.
== END | disposition home or self-care (01) ==
LOC: MFPLAB 14:22
PROVIDERS: PCP Family Medicine; Visit Provider Family Medicine
DX: E03.9 Hypothyroidism, unspecified (principal); N18.30 Chronic kidney disease, stage 3 unspecified; E55.9 Vitamin D deficiency, unspecified
CPT/HCPCS: 36415; 80053; 82043; 82306; 82570; 84443

== ENCOUNTER → 2025-01-13 | Outpatient (CLI) | payer MEDICARE, SELFPAY ==
--- NOTE | 2025-01-13 12:30 | BI_ITS ---
EXAM: SCREENING MAMM (CAD), BILAT DATE: 01/13/2025 CLINICAL HISTORY: F, Age 69 y/o , TECHNIQUE: Procedure Code: [id number] Modality: MG Procedure: SCREENING MAMM (CAD), BILAT COMPARISON: Prior exam(s) were compared FINDINGS: TISSUE DENSITY: There are scattered areas of fibroglandular density. Bilateral Breast Mammographic Findings: No suspicious masses, calcifications or other abnormalities are identified. BI/SCREENING MAMM (CAD), BILAT IMPRESSION: No mammographic evidence of malignancy in either breast OVERALL FINAL ASSESSMENT BI-RADS 1: NEGATIVE. RECOMMENDATION: Routine annual follow-up in 1 Year Additional Recommendation none A letter with findings and recommendations will be mailed to the patient. Reading Location: [id number]
== END | disposition home or self-care (01) ==
PROVIDERS: PCP Family Medicine; Referring Provider Family Medicine; Visit Provider Family Medicine
DX: Z12.31 Encounter for screening mammogram for malignant neoplasm of breast (principal)
CPT/HCPCS: 77067